=== PATIENT | female | born 1955 ===

== ENCOUNTER 2018-04-20 11:56 | Inpatient (IN) | payer OTHER ==
--- NOTE | 2018-04-20 12:14 | C.PDOC ---
History Of Present Illness 63 y/o female, with history of COPD and CHF, brought in by EMS for respiratory arrest. As per EMS, patient had a worsening SOB for the past 4 days. Patient was awake and EMS had prolonged extrication from site. EMS started nebulizer treatment but patient became unresponsive on route. CPR was initiated and patient was positive for PEA, as per EMS. Patient was given epi x2 and s/p intubated prior to arrival. On arrival at 11:53am, patient is still positive for PEA and has no palpable pulse. CPR was re-initiated. Chief Complaint (Nursing): Cardiac Arrest History Per: EMS Reason For Code Blue: Respiratory Arrest Circumstances: Brought To ED By EMS CPR Initiated Prior To MD Arrival?: Yes Treatment Initiated Prior To MD Arrival: Yes: Intubation Medications Given Prior To MD Arrival: Yes: Epinephrine (2) - Initial Findings Mentation: Unresponsive Pulse: None Rhythm: PEA Past Medical History Reviewed: Historical Data, Nursing Documentation, Vital Signs Vital Signs: Last Vital Signs Temp Pulse 0 L 04/20/18 12:01 Resp 0 L 04/20/18 12:01 BP 0/0 L 04/20/18 12:01 Pulse Ox 89 L 04/20/18 12:01 - Medical History PMH: Asthma, Bronchitis, COPD, HTN Family History: States: No Known Family Hx - Social History Hx Alcohol Use: No Hx Substance Use: No Review Of Systems Review Of Systems: ROS cannot be obtained secondary to pt's inabilty to answer questions. Physical Exam - Physical Exam Appears: Other (Unresponsive) Skin: Other (dehiscence abdominal wall wound in RLQ) Head: Atraumatic, Normacephalic Neck: Supple Respiratory: Other (ET tube placed, with pink frothy fluid coming out of tube) Extremity: Other (ulcerations on both lower legs) Pulses: Left Radial: Absent (no palpable pulse), Right Radial: Absent Neurological/Psych: Other (no spontaneous activity or response to pain) ED Course And Treatment - Laboratory Results Result Diagrams: 04/20/18 12:30 ECG: Interpreted By Me, Viewed By Me ECG Rhythm: Sinus Rhythm Interpretation Of ECst degree AV block Rate From EC O2 Sat by Pulse Oximetry: 89 (RA) Pulse Ox Interpretation: Abnormal - Radiology CXR: Interpreted by Me CXR Interpretation: Yes: Other (R MAINSTEM) - Other Rad CXR X-Ray: Read By Radiologist Interpretation: FINDINGS: In situ ETT, tip which lies in the right mainstem bronchus and should be withdrawn. In situ NGT, the tip of which has not been included on this film though distal aspect does lie well below EG junction just to the left of midline. LUNGS: Low lung volumes with crowded bronchovascular markings bibasilar atelectasis with bilateral mid to lower lobe infiltrates consistent with pulmonary edema/CHF. There also appears to be bilateral effusions. PLEURA: As above. No pneumothorax apparent. CARDIOVASCULAR: No discernible aortic atherosclerotic calcification present. Heart is enlarged. . OSSEOUS STRUCTURES: No significant abnormalities. VISUALIZED UPPER ABDOMEN: Normal. OTHER FINDINGS: None. IMPRESSION: ET T tip lies in the right mainstem bronchus and must be withdrawn. This finding was discussed with Dr. Gracia at approximately 12:50 p.m. with written down and read back verification. In situ NGT as above. Pulmonary vascular congestive changes with bilateral lower lobe alveolar-type infiltrates and bilateral effusions. Cardiomegaly. Progress - Re-Evaluation Re-evaluation Note: 04/20/18 12:16 Patient had resumed pulse. 04/20/18 12:17 Patient had recurrent PEA. 04/20/18 12:20 Resumed sinus tachycardic, femoral pulse with doppler. 04/20/18 12:39 ETT TO BE ADJUSTED. SINUS TACH, STABLE ON VENT. PENDING CALLBACK DR ZAVALA 04/20/18 12:46 D/W DR MARISELA FRANKLIN TELEGRAPHIC INSTRUMENT SUPERVISOR WILL ADMIT 04/20/18 13:15 Recurrent PEA, CPR re-initiated. Discussed with patient's daughter on the phone, who is in [place] and identifies as the healthcare decision maker. Daughter is aware of patient's status and wants to continue full code. Patient's son is at bedside. ICU aware. Positive femoral pulse on doppler. 04/20/18 13:[address] Jeronimo to follow up dispo. - Data Reviewed Data Reviewed: Lab, Diagnostic imaging, EKG, Old records - Critical Care Citical Care: Excluding Proc Time Critical Care Time: 90 minutes Disposition Counseled Patient/Family Regarding: Studies Performed, Diagnosis - Disposition Disposition: HOSPITALIZED Disposition Time: 12:46 Condition: CRITICAL - POA Present On Arrival: None - Clinical Impression Clinical Impression: Respiratory arrest, PEA (Pulseless electrical activity), CHF exacerbation, COPD exacerbation
[2018-04-20 12:43] LABS: BASO # 0.1 K/uL (0.0-0.2); BASO % 0.4 % (0.0-2.0); EOS # 0.1 K/uL (0.0-0.7); EOS % 0.3 % (0.0-4.0); LYMPH # 2.5 K/uL (1.0-4.3); LYMPH % 13.8 % (20.0-40.0); MEAN CELL VOLUME 84.3 fL (81.0-99.0); MEAN CORPUSCULAR HEMOGLOBIN 25.7 pg (27.0-31.0); MEAN CORPUSCULAR HGB CONC 30.4 g/dL (33.0-37.0); MEAN PLATELET VOLUME 10.3 fL (7.2-11.7); MONO # 0.4 K/uL (0.0-0.8); MONO % 2.3 % (0.0-10.0); NEUT # 15.1 K/uL (1.8-7.0); NEUT % 83.2 % (50.0-75.0); NRBC % 0.3 % (0.0-2.0); RBC 5.85 Mil/uL (3.80-5.20); RED CELL DISTRIBUTION WIDTH 16.1 % (11.5-14.5); WHITE BLOOD COUNT 18.2 K/uL (4.8-10.8)
[2018-04-20 12:51] LABS: INR 1.2; PROTHROMBIN TIME 13.6 SECONDS (9.7-12.2)
--- NOTE | 2018-04-20 12:54 | RAD ---
Date of service: 04/20/2018 HISTORY: ca cardiac arrest COMPARISON: None available. FINDINGS: In situ ETT, tip which lies in the right mainstem bronchus and should be withdrawn. In situ NGT, the tip of which has not been included on this film though distal aspect does lie well below EG junction just to the left of midline. LUNGS: Low lung volumes with crowded bronchovascular markings bibasilar atelectasis with bilateral mid to lower lobe infiltrates consistent with pulmonary edema/CHF. There also appears to be bilateral effusions PLEURA: As above. No pneumothorax apparent. CARDIOVASCULAR: No discernible aortic atherosclerotic calcification present. Heart is enlarged. . OSSEOUS STRUCTURES: No significant abnormalities. VISUALIZED UPPER ABDOMEN: Normal. OTHER FINDINGS: None. IMPRESSION: ET T tip lies in the right mainstem bronchus and must be withdrawn. This finding was discussed with Dr. Gracia at approximately 12:50 p.m. with written down and read back verification. In situ NGT as above. Pulmonary vascular congestive changes with bilateral lower lobe alveolar-type infiltrates and bilateral effusions. Cardiomegaly.
[2018-04-20] MEDS: DOPamine 400mg/250ml D5W 400 MG/250 ML BAG IV PRN ×3 (13:01→18:45)
--- NOTE | 2018-04-20 13:03 | CP.PCM.CON ---
<Bethany Richard - Last Filed: 04/20/18 15:26> History of Present Illness - History of Present Illness History of Present Illness: ICU Consult Note for Dr. Davidson HPI: 63 y/o female with PMHx of COPD and CHF presented to the ED s/p cardiac arrest. Patient was intubated in the field. Patient presents via EMS and without family. Before she arrived to the ED, she went into PEA, epi x 2 given, patient intubated, CPR initiated, and PEA occurred again. Patient given dopamine in the ED. IO access on right tibia performed by ED physician. Central line was not performed in the ED. CPR again in the ED. (See chart for detailed events). Patient stabilized and brought up to ED. Right femoral TLC inserted. Patient with some jerking movements and intermittent opening of eyes during procedure, but no agitation. Patient's past medical record under "select visit" unable to be obtained; they were outpatient visits. ROS: Due to patient condition, ROS and other medical history unable to be obtained Review of Systems - Review of Systems Systems not reviewed;Unavailable: Acuity of Condition, Intubated Past Patient History - Past Social History Smoking Status: Unknown If Ever Smoked - CARDIAC Hx Hypertension: Yes - PULMONARY Hx Asthma: Yes Hx Bronchitis: Yes Hx Chronic Obstructive Pulmonary Disease (COPD): Yes - PSYCHIATRIC Hx Substance Use: No Meds Allergies/Adverse Reactions: Allergies Allergy/AdvReac Type Severity Reaction Status Date / Time No Known Allergies Allergy Verified 04/20/18 12:06 - Medications Medications: Current Medications Dopamine HCl/Dextrose (Dopamine 400mg/250ml D5w) 400 mg in 250 mls @ 6.294 mls/hr IV .Q24H PRN; Protocol PRN Reason: TITRATE PER MD ORDER Physical Exam - Constitutional Appears: Other (lethargic) - Head Exam Head Exam: ATRAUMATIC, NORMAL INSPECTION, NORMOCEPHALIC - Neck Exam Additional comments: short neck due to obesity - Respiratory Exam Respiratory Exam: Wheezes (expiratory wheezing throughout lung celis). absent: Clear to Auscultation Bilateral - Cardiovascular Exam Cardiovascular Exam: Tachycardia - GI/Abdominal Exam GI & Abdominal Exam: Soft. absent: Rebound, Rigid, Tenderness Additional comments: central obesity - Extremities Exam Additional comments: 2+ pitting LE edema, bilateral bandages on calves - Neurological Exam Additional comments: unable to assess due to patient condition - Skin Skin Exam: Cyanosis, Dry, Intact Results - Vital Signs Recent Vital Signs: Last Vital Signs Temp Pulse 0 L 04/20/18 12:01 Resp 0 L 04/20/18 12:01 BP 0/0 L 04/20/18 12:01 Pulse Ox 89 L 04/20/18 12:56 - Labs Result Diagrams: 04/20/18 12:30 04/20/18 13:50 Labs: Laboratory Results - last 24 hr 04/20/18 04/20/18 12:30 12:31 WBC 18.2 H RBC 5.85 H Hgb 15.0 Hct 49.3 H MCV 84.3 MCH 25.7 L MCHC 30.4 L RDW 16.1 H Plt Count 157 MPV 10.3 Neut % (Auto) 83.2 H Lymph % (Auto) 13.8 L Sac % (Auto) 2.3 Eos % (Auto) 0.3 Baso % (Auto) 0.4 Neut # (Auto) 15.1 H Lymph # (Auto) 2.5 Sac # (Auto) 0.4 Eos # (Auto) 0.1 Baso # (Auto) 0.1 PT 13.6 H INR 1.2 APTT 51 H Assessment & Plan - Assessment and Plan (Free Text) Assessment: 63 y/o female with PMHx of COPD and CHF presented to the ED s/p cardiac arrest. Patient was intubated in the field. Transferred to ICU. neuro -not alert, some jerking movements and spontaneous opening of eyes -intubated -s/p ativan x 1 -CT head negative for hemorrhage -concern for anoxic brain injury. Neuro consult Dr. Monroy, recs appreciated CV -PMHx CHF -BNP 34588 on admission 04/20 -avoid diuresis w/ lasix IV for now due to hypotension -troponin x 1 negative on admission 04/20, repeat q8h pending -Patient admitted with hypotension and tachycardia 57/28 and HR >120. See code sheet for details. Patient was on DA but it was d/yevgeniy. Now levophed, titratable. -Code freeze called at 1415 on admission day 04/20. CT head neg for hemorrhage. Pulm -PMHx COPD and CHF -CXR 04/20: bilateral effusions, alveolar type infiltrates in bilateral lower lobe. NGT appreciated. -ABG in ED: pH 6.94, pCO2 69, pO2 65, HCO3 10.2. Severe acidosis. Patient given bicarb x 2 after insertion of right femoral TLC in the ICU. Repeat ABG after bicarb treatment pending -vent settings: 25/100%/500/5 -duonebs q4h -CXR and ABG qAM while intubated GI -no acute issues -consider tube feeding w/ pulmocort after further stabilized Renal -patient admitted with acute kidney injury -CMP on admission 04/20 with BUN/Cr 31/1.3 -phoslo x 1 given due to hyperphosphatemia -avoid nephrotoxic agents -CMP qAM ID -leukocytosis 18.2 on admission 04/20. Patient afebrile. -pending urinalysis and urine culture from straight cath Endo -accuchecks q6h DVT ppx: hold for now (patient w/ recent falls - injury to lower extremities. Not in record; from another hospital per RN.) GI ppx: protonix 40 mg q12h Code: full, per ED staff. Will confirm code status upon arrival of family. Bethany Richard PGY1 <Moshe Davidson - Last Filed: 04/20/18 16:47> Meds - Medications Medications: Current Medications Albuterol/Ipratropium (Duoneb 3 Mg/0.5 Mg (3 Ml) Ud) 3 ml INH RQ4 SHANNAN Calcium Acetate (Phoslo) 667 mg GT BIDCC ONE Stop: 04/20/18 17:01 Sodium Bicarbonate 150 meq/ (Sodium Chloride) 900 mls @ 100 mls/hr IV .Q9H SHANNAN Last Admin: 04/20/18 14:27 Dose: 100 mls/hr Norepinephrine Bitartrate 4 mg (/ Sodium Chloride) 250 mls @ 15 mls/hr IV .[id number] PRN; Protocol PRN Reason: TITRATE PER MD ORDER Sodium Chloride (Sodium Chloride 0.9%) 1,000 mls @ 1,000 mls/hr IV .Q1H ONE Stop: 04/20/18 16:54 Pantoprazole Sodium (Protonix Inj) 40 mg IVP Q12H [facility] Results - Vital Signs Recent Vital Signs: Last Vital Signs Temp 98.1 F 04/20/18 13:40 Pulse 96 H 04/20/18 13:40 Resp 20 04/20/18 13:40 BP 111/67 04/20/18 13:40 Pulse Ox 89 L 04/20/18 13:34 - Labs Result Diagrams: 04/20/18 12:30 04/20/18 13:50 Labs: Laboratory Results - last 24 hr 04/20/18 04/20/18 04/20/18 12:30 12:31 13:06 WBC 18.2 H RBC 5.85 H Hgb 15.0 Hct 49.3 H MCV 84.3 MCH 25.7 L MCHC 30.4 L RDW 16.1 H Plt Count 157 MPV 10.3 Neut % (Auto) 83.2 H Lymph % (Auto) 13.8 L Sac % (Auto) 2.3 Eos % (Auto) 0.3 Baso % (Auto) 0.4 Neut # (Auto) 15.1 H Lymph # (Auto) 2.5 Sac # (Auto) 0.4 Eos # (Auto) 0.1 Baso # (Auto) 0.1 PT 13.6 H INR 1.2 APTT 51 H Puncture Site pCO2 pO2 HCO3 ABG pH ABG Total CO2 ABG O2 Saturation ABG Base Excess ABG Hemoglobin ABG Carboxyhemoglobin POC ABG HHb (Measured) ABG Methemoglobin Aurelio Test A-a O2 Difference Respiratory Index Hgb O2 Saturation Vent Mode Mechanical Rate FiO2 Tidal Volume PEEP Crit Value Called To Crit Value Called By Crit Value Read Back Blood Gas Notified Time Sodium Potassium Chloride Carbon Dioxide Anion Gap BUN Creatinine Est GFR ( Amer) Est GFR (Non-Af Amer) Random Glucose Calcium Phosphorus Magnesium Total Bilirubin AST ALT Alkaline Phosphatase Troponin I NT-Pro-B Natriuret Pep Total Protein Albumin Globulin Albumin/Globulin Ratio Lipase Blood Type A NEGATIVE Antibody Screen Negative 04/20/18 04/20/18 04/20/18 13:25 13:50 13:55 WBC RBC Hgb Hct MCV MCH MCHC RDW Plt Count MPV Neut % (Auto) Lymph % (Auto) Sac % (Auto) Eos % (Auto) Baso % (Auto) Neut # (Auto) Lymph # (Auto) Sac # (Auto) Eos # (Auto) Baso # (Auto) PT INR APTT Puncture Site Rr pCO2 69 H pO2 65 L HCO3 10.2 L ABG pH 6.94 L* ABG Total CO2 16.9 L ABG O2 Saturation 86.8 L ABG Base Excess -18.4 L ABG Hemoglobin 14.6 ABG Carboxyhemoglobin 2.3 H POC ABG HHb (Measured) 12.8 H ABG Methemoglobin 0.4 Aurelio Test Pos A-a O2 Difference 562.0 Respiratory Index 8.6 Hgb O2 Saturation 84.5 L Vent Mode Prvc Mechanical Rate 20 FiO2 100.0 Tidal Volume 500 PEEP 5 Crit Value Called To Dr funes Crit Value Called By Bettina briscoe Crit Value Read Back Y Blood Gas Notified Time 1337 Sodium 136 Potassium 4.3 Chloride 103 Carbon Dioxide 19 L Anion Gap 19 BUN 31 H Creatinine 1.3 H Est GFR ( Amer) 50 Est GFR (Non-Af Amer) 41 Random Glucose 149 H Calcium 8.9 Phosphorus 6.8 H Magnesium 2.3 Total Bilirubin 1.0 AST 91 H ALT 23 Alkaline Phosphatase 342 H Troponin I 0.0710 NT-Pro-B Natriuret Pep 52437 H Total Protein 7.1 Albumin 3.3 L Globulin 3.8 Albumin/Globulin Ratio 0.8 L Lipase 83 Blood Type A NEGATIVE Antibody Screen Negative Attending/Attestation - Attestation I have personally seen and examined this patient.: Yes I have fully participated in the care of the patient.: Yes I have reviewed all pertinent clinical information: Yes Notes (Text): 04/20/18 16:45 Patient seen and examined Status post cardiac arrest and resuscitation No response to painful stimuli with dilated pupils Therapeutic hypothermia started Neurology evaluation Cardiology consult Dr. burton Cardiac enzymes
[2018-04-20 13:37] LABS: ABG ALLEN TEST POS; ARTERIAL BLOOD GAS HCO3 10.2 mmol/L (21-28); ARTERIAL BLOOD GAS HEMOGLOBIN 14.6 g/dL (11.7-17.4); ARTERIAL BLOOD GAS O2 SAT 86.8 % (95-98); ARTERIAL BLOOD GAS PCO2 69 mm/Hg (35-45); ARTERIAL BLOOD GAS PH 6.94 (7.35-7.45); ARTERIAL BLOOD GAS PO2 65 mm/Hg (80-100); ARTERIAL BLOOD GAS TCO2 16.9 mmol/L (22-28)
[2018-04-20] MEDS ORDERED: Sodium Bicarbonate (8.4%) 50 Meq Syringe ONE (13:57)
[2018-04-20] MEDS ORDERED: SODIUM CHLORIDE 0.9% IV SCH (14:15)
[2018-04-20] MEDS ORDERED: SODIUM BICARBONATE IV SCH (14:15)
--- NOTE | 2018-04-20 14:16 | CP.PCM.PCO ---
Physician Communication Note - Physician Communication Note Physician Communication Note: see above
[2018-04-20 14:23] LABS: ALB/GLOB RATIO 0.8 (1.0-2.1); ALBUMIN 3.3 g/dL (3.5-5.0); CALCIUM 8.9 mg/dl (8.6-10.4)
[2018-04-20] MEDS: Sodium Bicarbonate (8.4%) 50 Meq Syringe IVP SCH (14:27)
[2018-04-20] MEDS ORDERED: MethylPREDNISolone 40 mg Vial IVP SCH (14:30)
[2018-04-20] MEDS ORDERED: Sodium Bicarbonate (8.4%) 50 Meq Syringe IVP ONE (14:30)
[2018-04-20 14:34] LABS: TROPONIN I 0.071 ng/mL (0.00-0.120)
--- NOTE | 2018-04-20 15:25 | CT ---
Date of service: 04/20/2018 PROCEDURE: CT HEAD WITHOUT CONTRAST. HISTORY: r.o bleed COMPARISON: None available. TECHNIQUE: Axial computed tomography images were obtained through the head/brain without intravenous contrast. Radiation dose: Total exam DLP = 0.0 mGy-cm. This CT exam was performed using one or more of the following dose reduction techniques: Automated exposure control, adjustment of the mA and/or kV according to patient size, and/or use of iterative reconstruction technique. FINDINGS: HEMORRHAGE: No intracranial hemorrhage. BRAIN: Minimal microangiopathy surrounds the frontal horns of the bilateral lateral ventricles with remaining osborne and white-matter density normal throughout the remainder of the supra and infratentorial brain parenchyma. There is no mass effect. There is no suspicious extra-axial collection appreciated, including hemorrhage. Sulci and cisterns appear diffusely unremarkable throughout. VENTRICLES: Unremarkable. No hydrocephalus. CALVARIUM: Unremarkable. PARANASAL SINUSES: Unremarkable as visualized. No significant inflammatory changes. MASTOID AIR CELLS: Unremarkable as visualized. No inflammatory changes. OTHER FINDINGS: None. IMPRESSION: Minimal chronic microangiopathy appropriate for the patient's stated age of 63 years. No additional pertinent findings in hemorrhage, mass effect or parenchymal edema. Follow-up CT available or MRI if clinically warranted.
[2018-04-20] MEDS ORDERED: Sodium Chloride 0.9% 1,000 ML IV ONE (15:55)
--- NOTE | 2018-04-20 18:01 | RAD ---
HISTORY: ett reposition COMPARISON: Chest x-ray performed earlier the same day. Endotracheal tube terminates above the molly, approximately 8.4 cm; however please note the molly is inadequately visualized due to overlying defibrillator pads. Nasogastric tube extends expected location of the stomach. Examination limited by habitus and marked hypoinflation. TECHNIQUE: Chest, one view. FINDINGS: Endotracheal tube terminates approximately 6 cm above the molly which is inadequately visualized due to overlying defibrillator pad. Nasogastric tube extends expected location of the stomach. LUNGS: Moderate pulmonary venous congestion. PLEURA: Small pleural effusions. No definite pneumothorax . CARDIOVASCULAR: Partially obscured; cardiac silhouette size appears top-normal. OSSEOUS STRUCTURES: Degenerative changes. VISUALIZED UPPER ABDOMEN: Unremarkable. OTHER FINDINGS: None. IMPRESSION: Suboptimal study as above. Moderate pulmonary venous congestion. Small pleural effusions. Endotracheal tube terminates approximately 6 cm above the molly which is inadequately visualized due to overlying defibrillator pad. Nasogastric tube extends expected location of the stomach.
[2018-04-20] MEDS ORDERED: Sodium Bicarbonate 8.4% 150 MEQ in Sodium Chloride 0.9% 850 ML IV SCH (19:09)
[2018-04-20 22:36] LABS: SQUAMOUS EPITHIAL < 1 /hpf (0-5); URINE BACTERIA MANY (<OCC); URINE BILIRUBIN NEGATIVE (NEGATIVE); URINE BLOOD 1+ (NEGATIVE); URINE CLARITY Hazy (Clear); URINE COLOR Yellow (YELLOW); URINE GLUCOSE (UA) 1+ mg/dL (Normal); URINE LEUKOCYTE ESTERASE NEG Leu/uL (Negative); URINE PROTEIN 3+ mg/dL (NEGATIVE); URINE UROBILINOGEN NORMAL mg/dL (0.2-1.0)
[2018-04-21] MEDS ORDERED: Dextrose 50% SYRINGE Inj (50 ml) IV STA ×2 (00:10→00:13)
[2018-04-21] MEDS: DOPamine 400mg/250ml D5W 400 MG/250 ML BAG IV PRN ×3 (00:34→18:14)
[2018-04-21 06:00] LABS: ABG ALLEN TEST POS; ARTERIAL BLOOD GAS HCO3 20.8 mmol/L (21-28); ARTERIAL BLOOD GAS HEMOGLOBIN 16.4 g/dL (11.7-17.4); ARTERIAL BLOOD GAS O2 SAT 96.6 % (95-98); ARTERIAL BLOOD GAS PCO2 37 mm/Hg (35-45); ARTERIAL BLOOD GAS PH 7.34 (7.35-7.45); ARTERIAL BLOOD GAS PO2 74 mm/Hg (80-100); ARTERIAL BLOOD GAS TCO2 21.1 mmol/L (22-28)
[2018-04-21 06:33] LABS: BASO # 0.2 K/uL (0.0-0.2); BASO % 0.6 % (0.0-2.0); EOS % 0.2 % (0.0-4.0); HEMOGLOBIN 16.8 g/dL (11.0-16.0); LYMPH # 0.8 K/uL (1.0-4.3); MEAN CELL VOLUME 81.2 fL (81.0-99.0); MEAN CORPUSCULAR HEMOGLOBIN 25.6 pg (27.0-31.0); MEAN CORPUSCULAR HGB CONC 31.6 g/dL (33.0-37.0); MONO # 1.1 K/uL (0.0-0.8); MONO % 3.9 % (0.0-10.0); NEUT # 25.2 K/uL (1.8-7.0); NEUT % 92.3 % (50.0-75.0); PLATELET COUNT 192 K/uL (130-400); RBC 6.56 Mil/uL (3.80-5.20); WHITE BLOOD COUNT 27.3 K/uL (4.8-10.8)
[2018-04-21 07:04] LABS: ALB/GLOB RATIO 0.7 (1.0-2.1); ALBUMIN 2.5 g/dL (3.5-5.0); CALCIUM 8.3 mg/dl (8.6-10.4)
--- NOTE | 2018-04-21 08:11 | CP.PCM.CON ---
History of Present Illness - History of Present Illness History of Present Illness: patient seen/examined full consult to follow long discussion with family will check echo Past Patient History - Past Medical History & Family History Past Medical History?: Yes - Past Social History Smoking Status: Unknown If Ever Smoked - CARDIAC Hx Hypertension: Yes - PULMONARY Hx Asthma: Yes Hx Bronchitis: Yes Hx Chronic Obstructive Pulmonary Disease (COPD): Yes - MUSCULOSKELETAL/RHEUMATOLOGICAL Hx Falls: No - PSYCHIATRIC Hx Substance Use: No Meds Allergies/Adverse Reactions: Allergies Allergy/AdvReac Type Severity Reaction Status Date / Time No Known Allergies Allergy Verified 04/20/18 12:06 - Medications Medications: Current Medications Albuterol/Ipratropium (Duoneb 3 Mg/0.5 Mg (3 Ml) Ud) 3 ml INH RQ4 SHANNAN Norepinephrine Bitartrate 4 mg (/ Sodium Chloride) 250 mls @ 15 mls/hr IV .[id number] PRN; Protocol PRN Reason: TITRATE PER MD ORDER Last Admin: 04/21/18 06:00 Dose: 5.01 mcg/min, 18.8 mls/hr Dopamine HCl/Dextrose (Dopamine 400mg/250ml D5w) 400 mg in 250 mls @ 6.294 mls/hr IV .Q24H PRN; Protocol PRN Reason: TITRATE PER MD ORDER Last Titration: 04/21/18 07:00 Dose: 8 mcg/kg/min, 25.2 mls/hr Sodium Bicarbonate 150 meq/ (Sodium Chloride) 1,000 mls @ 40 mls/hr IV .Q24H SHANNAN Last Admin: 04/20/18 19:10 Dose: 40 mls/hr Pantoprazole Sodium (Protonix Inj) 40 mg IVP Q12H SHANNAN Last Admin: 04/21/18 03:04 Dose: 40 mg Results - Vital Signs Recent Vital Signs: Last Vital Signs Temp 95.5 F L 04/21/18 04:00 Pulse 109 H 04/21/18 07:00 Resp 26 H 04/21/18 07:00 BP 123/48 L 04/21/18 06:57 Pulse Ox 98 04/21/18 07:00 - Labs Result Diagrams: 04/21/18 06:26 04/21/18 06:26 Labs: Laboratory Results - last 24 hr 01/09/19 01/09/19 01/09/19 12:30 12:31 13:06 WBC 18.2 H RBC 5.85 H Hgb 15.0 Hct 49.3 H MCV 84.3 MCH 25.7 L MCHC 30.4 L RDW 16.1 H Plt Count 157 MPV 10.3 Neut % (Auto) 83.2 H Lymph % (Auto) 13.8 L [place] % (Auto) 2.3 Eos % (Auto) 0.3 Baso % (Auto) 0.4 Neut # (Auto) 15.1 H Lymph # (Auto) 2.5 [place] # (Auto) 0.4 Eos # (Auto) 0.1 Baso # (Auto) 0.1 PT 13.6 H INR 1.2 APTT 51 H Puncture Site pCO2 pO2 HCO3 ABG pH ABG Total CO2 ABG O2 Saturation ABG Base Excess ABG Hemoglobin ABG Carboxyhemoglobin POC ABG HHb (Measured) ABG Methemoglobin [place] Test A-a O2 Difference Respiratory Index Hgb O2 Saturation Vent Mode Mechanical Rate FiO2 Tidal Volume PEEP Crit Value Called To Crit Value Called By Crit Value Read Back Blood Gas Notified Time Sodium Potassium Chloride Carbon Dioxide Anion Gap BUN Creatinine Est GFR ( Amer) Est GFR (Non-Af Amer) POC Glucose (mg/dL) Random Glucose Calcium Phosphorus Magnesium Total Bilirubin AST ALT Alkaline Phosphatase Troponin I NT-Pro-B Natriuret Pep Total Protein Albumin Globulin Albumin/Globulin Ratio Lipase Urine Color Urine Clarity Urine pH Ur Specific [place] Urine Protein Urine Glucose (UA) Urine Ketones Urine Blood Urine Nitrate Urine Bilirubin Urine Urobilinogen Ur Leukocyte Esterase Urine WBC (Auto) Urine RBC (Auto) Ur Squamous Epith Cells Urine Bacteria Blood Type A NEGATIVE Antibody Screen Negative 04/20/18 04/20/18 04/20/18 13:25 13:50 13:55 WBC RBC Hgb Hct MCV MCH MCHC RDW Plt Count MPV Neut % (Auto) Lymph % (Auto) [place] % (Auto) Eos % (Auto) Baso % (Auto) Neut # (Auto) Lymph # (Auto) [place] # (Auto) Eos # (Auto) Baso # (Auto) PT INR APTT Puncture Site Rr pCO2 69 H pO2 65 L HCO3 10.2 L ABG pH 6.94 L* ABG Total CO2 16.9 L ABG O2 Saturation 86.8 L ABG Base Excess -18.4 L ABG Hemoglobin 14.6 ABG Carboxyhemoglobin 2.3 H POC ABG HHb (Measured) 12.8 H ABG Methemoglobin 0.4 Aurelio Test Pos A-a O2 Difference 562.0 Respiratory Index 8.6 Hgb O2 Saturation 84.5 L Vent Mode Prvc Mechanical Rate 20 FiO2 100.0 Tidal Volume 500 PEEP 5 Crit Value Called To Dr funes Crit Value Called By Bettina briscoe Crit Value Read Back Y Blood Gas Notified Time 1337 Sodium 136 Potassium 4.3 Chloride 103 Carbon Dioxide 19 L Anion Gap 19 BUN 31 H Creatinine 1.3 H Est GFR ( Amer) 50 Est GFR (Non-Af Amer) 41 POC Glucose (mg/dL) Random Glucose 149 H Calcium 8.9 Phosphorus 6.8 H Magnesium 2.3 Total Bilirubin 1.0 AST 91 H ALT 23 Alkaline Phosphatase 342 H Troponin I 0.0710 NT-Pro-B Natriuret Pep 07453 H Total Protein 7.1 Albumin 3.3 L Globulin 3.8 Albumin/Globulin Ratio 0.8 L Lipase 83 Urine Color Urine Clarity Urine pH Ur Specific [place] Urine Protein Urine Glucose (UA) Urine Ketones Urine Blood Urine Nitrate Urine Bilirubin Urine Urobilinogen Ur Leukocyte Esterase Urine WBC (Auto) Urine RBC (Auto) Ur Squamous Epith Cells Urine Bacteria Blood Type A NEGATIVE Antibody Screen Negative 04/20/18 04/20/18 04/21/18 22:18 22:31 00:02 WBC RBC Hgb Hct MCV MCH MCHC RDW Plt Count MPV Neut % (Auto) Lymph % (Auto) [place] % (Auto) Eos % (Auto) Baso % (Auto) Neut # (Auto) Lymph # (Auto) [place] # (Auto) Eos # (Auto) Baso # (Auto) PT INR APTT Puncture Site pCO2 pO2 HCO3 ABG pH ABG Total CO2 ABG O2 Saturation ABG Base Excess ABG Hemoglobin ABG Carboxyhemoglobin POC ABG HHb (Measured) ABG Methemoglobin [place] Test A-a O2 Difference Respiratory Index Hgb O2 Saturation Vent Mode Mechanical Rate FiO2 Tidal Volume PEEP Crit Value Called To Crit Value Called By Crit Value Read Back Blood Gas Notified Time Sodium Potassium Chloride Carbon Dioxide Anion Gap BUN Creatinine Est GFR ( Amer) Est GFR (Non-Af Amer) POC Glucose (mg/dL) 24 L* Random Glucose Calcium Phosphorus Magnesium Total Bilirubin AST ALT Alkaline Phosphatase Troponin I 0.4590 H* NT-Pro-B Natriuret Pep Total Protein Albumin Globulin Albumin/Globulin Ratio Lipase Urine Color Yellow Urine Clarity Hazy Urine pH 5.0 Ur Specific [place] 1.013 Urine Protein 3+ H Urine Glucose (UA) 1+ Urine Ketones Negative Urine Blood 1+ H Urine Nitrate Negative Urine Bilirubin Negative Urine Urobilinogen Normal Ur Leukocyte Esterase Neg Urine WBC (Auto) 21 H Urine RBC (Auto) 40 H Ur Squamous Epith Cells < 1 Urine Bacteria Many H Blood Type Antibody Screen 04/21/18 04/21/18 04/21/18 00:04 01:21 05:17 WBC RBC Hgb Hct MCV MCH MCHC RDW Plt Count MPV Neut % (Auto) Lymph % (Auto) [place] % (Auto) Eos % (Auto) Baso % (Auto) Neut # (Auto) Lymph # (Auto) [place] # (Auto) Eos # (Auto) Baso # (Auto) PT INR APTT Puncture Site R rad pCO2 37 pO2 74 L HCO3 20.8 L ABG pH 7.34 L ABG Total CO2 21.1 L ABG O2 Saturation 96.6 ABG Base Excess -5.1 L ABG Hemoglobin 16.4 ABG Carboxyhemoglobin 2.2 H POC ABG HHb (Measured) 3.3 ABG Methemoglobin 0.8 Aurelio Test Pos A-a O2 Difference 593.0 Respiratory Index 8.0 Hgb O2 Saturation 93.7 L Vent Mode Prvc Mechanical Rate 24 FiO2 100.0 Tidal Volume 500 PEEP 5 Crit Value Called To Crit Value Called By Crit Value Read Back Blood Gas Notified Time Sodium Potassium Chloride Carbon Dioxide Anion Gap BUN Creatinine Est GFR ( Amer) Est GFR (Non-Af Amer) POC Glucose (mg/dL) 43 L 146 H Random Glucose Calcium Phosphorus Magnesium Total Bilirubin AST ALT Alkaline Phosphatase Troponin I NT-Pro-B Natriuret Pep Total Protein Albumin Globulin Albumin/Globulin Ratio Lipase Urine Color Urine Clarity Urine pH Ur Specific [place] Urine Protein Urine Glucose (UA) Urine Ketones Urine Blood Urine Nitrate Urine Bilirubin Urine Urobilinogen Ur Leukocyte Esterase Urine WBC (Auto) Urine RBC (Auto) Ur Squamous Epith Cells Urine Bacteria Blood Type Antibody Screen 04/21/18 04/21/18 04/21/18 06:26 06:26 06:38 WBC 27.3 H RBC 6.56 H Hgb 16.8 H Hct 53.3 H MCV 81.2 D MCH 25.6 L MCHC 31.6 L RDW 16.0 H Plt Count 192 MPV 10.0 Neut % (Auto) 92.3 H Lymph % (Auto) 3.0 L [place] % (Auto) 3.9 Eos % (Auto) 0.2 Baso % (Auto) 0.6 Neut # (Auto) 25.2 H Lymph # (Auto) 0.8 L [place] # (Auto) 1.1 H Eos # (Auto) 0.0 Baso # (Auto) 0.2 PT INR APTT Puncture Site pCO2 pO2 HCO3 ABG pH ABG Total CO2 ABG O2 Saturation ABG Base Excess ABG Hemoglobin ABG Carboxyhemoglobin POC ABG HHb (Measured) ABG Methemoglobin Aurelio Test A-a O2 Difference Respiratory Index Hgb O2 Saturation Vent Mode Mechanical Rate FiO2 Tidal Volume PEEP Crit Value Called To Crit Value Called By Crit Value Read Back Blood Gas Notified Time Sodium 136 Potassium 3.7 Chloride 101 Carbon Dioxide 22 Anion Gap 16 BUN 38 H Creatinine 1.7 H Est GFR ( Amer) 37 Est GFR (Non-Af Amer) 30 POC Glucose (mg/dL) 159 H Random Glucose 174 H Calcium 8.3 L Phosphorus 3.5 Magnesium 1.6 Total Bilirubin 1.7 H AST 94 H ALT 29 Alkaline Phosphatase 290 H Troponin I NT-Pro-B Natriuret Pep Total Protein 5.9 L Albumin 2.5 L D Globulin 3.4 Albumin/Globulin Ratio 0.7 L Lipase Urine Color Urine Clarity Urine pH Ur Specific [place] Urine Protein Urine Glucose (UA) Urine Ketones Urine Blood Urine Nitrate Urine Bilirubin Urine Urobilinogen Ur Leukocyte Esterase Urine WBC (Auto) Urine RBC (Auto) Ur Squamous Epith Cells Urine Bacteria Blood Type Antibody Screen
[2018-04-21 08:47] LABS: BANDS 50 % (0-2); LYMPHOCYTE 2 % (20-40); MONOCYTE 2 % (0-10); NEUTROPHIL 46 % (50-75); PLATELET ESTIMATE NORMAL (NORMAL); TOTAL CELLS COUNTED 100
[2018-04-21 08:48] LABS: GIANT PLATELETS PRESENT; LARGE PLATELETS PRESENT; TOXIC GRANULATION PRESENT
[2018-04-21 08:49] LABS: POIKILOCYTOSIS SLIGHT
--- NOTE | 2018-04-21 09:04 | RAD ---
Chest x-ray single frontal view HISTORY: Intubated. Comparison 04/20/2018 Findings: Lines and tubes in stable position. Worsening diffuse confluent bilateral airspace opacification most prominent in the mid to lower lung zones. Moderate loculated right pleural effusion and small left pleural effusion. Enlarged ectatic aorta. Cardiomegaly. Degenerative changes in the spine and shoulders. Impression: Moderate venous congestion. Confluent somewhat ill-defined airspace consolidative changes seen within the left mid lung zone and right infrahilar region. Bilateral hilar prominence. Atherosclerotic calcification and plaque in the aorta. Cardiomegaly.
[2018-04-21] MEDS ORDERED: Sodium Chloride 0.9% 1,000 ML IV SCH (12:06)
--- NOTE | 2018-04-21 14:55 | CARD ---
APPROVED REPORT Date of service: 04/21/2018 EXAM: Two-dimensional and M-mode echocardiogram with Doppler and color Doppler. Other Information Quality : AverageRhythm : INDICATION Congestive Heart Failure COPD Cardiac arrest, asthma RISK FACTORS Hypertension 2D DIMENSIONS IVSd1.0 (0.7-1.1cm)LVDd4.7 (3.9-5.9cm) PWd1.2 (0.7-1.1cm)LA Bbqcob32 (18-58mL) LVDs3.5 (2.5-4.0cm)FS (%) 20.0 % LVEF (%)45.0 (>50%)LVEF (English's)38.78 % IVC0.00 cm M-Mode DIMENSIONS Left Atrium (MM)2.56 (2.5-4.0cm)IVSd0.82 (0.7-1.1cm) Aortic Root2.68 (2.2-3.7cm)LVDd5.12 (4.0-5.6cm) Aortic Cusp Exc.1.48 (1.5-2.0cm)PWd0.82 (0.7-1.1cm) FS (%) 29 %LVDs3.63 (2.0-3.8cm) Mitral Valve MV E Tqbdyici23.6cm/sMV A Hyqmltuj12.3cm/sE/A ratio0.7 TDI Lateral E' Peak V5.90cm/sMedial E' Peak V3.83cm/sE/Lateral E'9.8 E/Medial E'15.0 Tricuspid Valve TR Peak Qdcyngfm432gq/sTR Peak [id number] <Conclusion> Technically limited and difficultstudy. LV systolic function and chamber size appears to be normal Diastolic dysfunction. Consider other modality to assess LV function if clinically indicated.
[2018-04-21] MEDS: Piperacill/Tazo 3.375gm in Dex 3.375 GM/50 ML BAG IVPB SCH ×2 (15:19→18:16)
--- NOTE | 2018-04-21 15:21 | CP.PCM.CON ---
History of Present Illness - History of Present Illness History of Present Illness: Palliative consult requested by Doctor Batista for goals of care discussion Patient is a 63 yo female admitted with SOB, S/P intubation on route to ED . Per family, patient had worsening SOB X 4 days. When EMSarrived, patient was still alert. On way to the hospital, patient become unresponsive in acute respiratory distress and was intubated. CXR as significant for cardiomegaly, mild pulmonary venous congestion and pleural effsion. Cardiology and pulmonary consults called. CT head was negative active bleeding. However, there is concern about anoxic brain injury. Neuro consult was called. Patient made DNR with agreement from kolby vasquez. PMH: COPD, CHF Soc. Hx: , lives at home Fam. Hx: Unknown Review of Systems - Review of Systems All systems: reviewed and no additional remarkable complaints except Review of Systems: ROS unobtainable from patient due to unconciosness. ROS obtained from nursing. Per nursing, patient remains with GCS of 3. Past Patient History - Past Medical History & Family History Past Medical History?: Yes - Past Social History Smoking Status: Unknown If Ever Smoked - CARDIAC Hx Hypertension: Yes - PULMONARY Hx Asthma: Yes Hx Bronchitis: Yes Hx Chronic Obstructive Pulmonary Disease (COPD): Yes - MUSCULOSKELETAL/RHEUMATOLOGICAL Hx Falls: No - PSYCHIATRIC Hx Substance Use: No Meds Allergies/Adverse Reactions: Allergies Allergy/AdvReac Type Severity Reaction Status Date / Time No Known Allergies Allergy Verified 04/20/18 12:06 - Medications Medications: Current Medications Albuterol/Ipratropium (Duoneb 3 Mg/0.5 Mg (3 Ml) Ud) 3 ml INH RQ4 SHANNAN Norepinephrine Bitartrate 4 mg (/ Sodium Chloride) 250 mls @ 15 mls/hr IV .[id number] PRN; Protocol PRN Reason: TITRATE PER MD ORDER Last Admin: 04/21/18 06:00 Dose: 5.01 mcg/min, 18.8 mls/hr Dopamine HCl/Dextrose (Dopamine 400mg/250ml D5w) 400 mg in 250 mls @ 6.294 mls/hr IV .Q24H PRN; Protocol PRN Reason: TITRATE PER MD ORDER Last Titration: 04/21/18 10:10 Dose: 10 mcg/kg/min, 31.468 mls/hr Piperacillin Sod/Tazobactam Sod (Zosyn 3.375 Gm Iv Premix) 3.375 gm in 50 mls @ 100 mls/hr IVPB Q6H SHANNAN; Protocol Vancomycin HCl 1 gm/ Sodium (Chloride) 250 mls @ 166.7 mls/hr IVPB Q24H SHANNAN; Protocol Pantoprazole Sodium (Protonix Inj) 40 mg IVP Q12H SHANNAN Last Admin: 04/21/18 03:04 Dose: 40 mg Physical Exam - Constitutional Appears: In Acute Distress - Head Exam Head Exam: ATRAUMATIC, NORMAL INSPECTION, NORMOCEPHALIC - Eye Exam Additional comments: corneal reflex absent, pupils non reactive to light - ENT Exam Additional comments: ETT - Neck Exam Neck exam: Positive for: Normal Inspection - Respiratory Exam Respiratory Exam: Accessory Muscle Use Additional comments: On MV - Cardiovascular Exam Cardiovascular Exam: Tachycardia - GI/Abdominal Exam GI & Abdominal Exam: Distended, Hypoactive Bowel Sounds - Rectal Exam Rectal Exam: Deferred - Extremities Exam Extremities exam: Positive for: normal inspection - Back Exam Back exam: NORMAL INSPECTION - Neurological Exam Neurological exam: Motor Sensory Deficit - Psychiatric Exam Psychiatric exam: Flat Affect - Skin Skin Exam: Pallor Results - Vital Signs Recent Vital Signs: Last Vital Signs Temp 98.2 F 04/21/18 12:00 Pulse 123 H 04/21/18 14:25 Resp 24 04/21/18 14:25 BP 136/87 04/21/18 14:25 Pulse Ox 88 L 04/21/18 14:25 - Labs Result Diagrams: 04/21/18 06:26 04/21/18 06:26 Labs: Laboratory Results - last 24 hr 04/20/18 04/20/18 04/21/18 22:18 22:31 00:02 WBC RBC Hgb Hct MCV MCH MCHC RDW Plt Count MPV Neut % (Auto) Lymph % (Auto) [place] % (Auto) Eos % (Auto) Baso % (Auto) Neut # (Auto) Lymph # (Auto) [place] # (Auto) Eos # (Auto) Baso # (Auto) Neutrophils % (Manual) Band Neutrophils % Lymphocytes % (Manual) Monocytes % (Manual) Toxic Granulation Platelet Estimate Large Platelets Giant Platelets Poikilocytosis (manual Puncture Site pCO2 pO2 HCO3 ABG pH ABG Total CO2 ABG O2 Saturation ABG Base Excess ABG Hemoglobin ABG Carboxyhemoglobin POC ABG HHb (Measured) ABG Methemoglobin Aurelio Test A-a O2 Difference Respiratory Index Hgb O2 Saturation Vent Mode Mechanical Rate FiO2 Tidal Volume PEEP Sodium Potassium Chloride Carbon Dioxide Anion Gap BUN Creatinine Est GFR ( Amer) Est GFR (Non-Af Amer) POC Glucose (mg/dL) 24 L* Random Glucose Calcium Phosphorus Magnesium Total Bilirubin AST ALT Alkaline Phosphatase Troponin I 0.4590 H* Total Protein Albumin Globulin Albumin/Globulin Ratio Urine Color Yellow Urine Clarity Hazy Urine pH 5.0 Ur Specific [place] 1.013 Urine Protein 3+ H Urine Glucose (UA) 1+ Urine Ketones Negative Urine Blood 1+ H Urine Nitrate Negative Urine Bilirubin Negative Urine Urobilinogen Normal Ur Leukocyte Esterase Neg Urine WBC (Auto) 21 H Urine RBC (Auto) 40 H Ur Squamous Epith Cells < 1 Urine Bacteria Many H 04/21/18 04/21/18 04/21/18 00:04 01:21 05:17 WBC RBC Hgb Hct MCV MCH MCHC RDW Plt Count MPV Neut % (Auto) Lymph % (Auto) [place] % (Auto) Eos % (Auto) Baso % (Auto) Neut # (Auto) Lymph # (Auto) [place] # (Auto) Eos # (Auto) Baso # (Auto) Neutrophils % (Manual) Band Neutrophils % Lymphocytes % (Manual) Monocytes % (Manual) Toxic Granulation Platelet Estimate Large Platelets Giant Platelets Poikilocytosis (manual Puncture Site R rad pCO2 37 pO2 74 L HCO3 20.8 L ABG pH 7.34 L ABG Total CO2 21.1 L ABG O2 Saturation 96.6 ABG Base Excess -5.1 L ABG Hemoglobin 16.4 ABG Carboxyhemoglobin 2.2 H POC ABG HHb (Measured) 3.3 ABG Methemoglobin 0.8 Aurelio Test Pos A-a O2 Difference 593.0 Respiratory Index 8.0 Hgb O2 Saturation 93.7 L Vent Mode Prvc Mechanical Rate 24 FiO2 100.0 Tidal Volume 500 PEEP 5 Sodium Potassium Chloride Carbon Dioxide Anion Gap BUN Creatinine Est GFR ( Amer) Est GFR (Non-Af Amer) POC Glucose (mg/dL) 43 L 146 H Random Glucose Calcium Phosphorus Magnesium Total Bilirubin AST ALT Alkaline Phosphatase Troponin I Total Protein Albumin Globulin Albumin/Globulin Ratio Urine Color Urine Clarity Urine pH Ur Specific [place] Urine Protein Urine Glucose (UA) Urine Ketones Urine Blood Urine Nitrate Urine Bilirubin Urine Urobilinogen Ur Leukocyte Esterase Urine WBC (Auto) Urine RBC (Auto) Ur Squamous Epith Cells Urine Bacteria 04/21/18 04/21/18 04/21/18 06:26 06:26 06:38 WBC 27.3 H RBC 6.56 H Hgb 16.8 H Hct 53.3 H MCV 81.2 D MCH 25.6 L MCHC 31.6 L RDW 16.0 H Plt Count 192 MPV 10.0 Neut % (Auto) 92.3 H Lymph % (Auto) 3.0 L [place] % (Auto) 3.9 Eos % (Auto) 0.2 Baso % (Auto) 0.6 Neut # (Auto) 25.2 H Lymph # (Auto) 0.8 L [place] # (Auto) 1.1 H Eos # (Auto) 0.0 Baso # (Auto) 0.2 Neutrophils % (Manual) 46 L Band Neutrophils % 50 H* Lymphocytes % (Manual) 2 L Monocytes % (Manual) 2 Toxic Granulation Present Platelet Estimate Normal Large Platelets Present Giant Platelets Present Poikilocytosis (manual Slight Puncture Site pCO2 pO2 HCO3 ABG pH ABG Total CO2 ABG O2 Saturation ABG Base Excess ABG Hemoglobin ABG Carboxyhemoglobin POC ABG HHb (Measured) ABG Methemoglobin Aurelio Test A-a O2 Difference Respiratory Index Hgb O2 Saturation Vent Mode Mechanical Rate FiO2 Tidal Volume PEEP Sodium 136 Potassium 3.7 Chloride 101 Carbon Dioxide 22 Anion Gap 16 BUN 38 H Creatinine 1.7 H Est GFR ( Amer) 37 Est GFR (Non-Af Amer) 30 POC Glucose (mg/dL) 159 H Random Glucose 174 H Calcium 8.3 L Phosphorus 3.5 Magnesium 1.6 Total Bilirubin 1.7 H AST 94 H ALT 29 Alkaline Phosphatase 290 H Troponin I Total Protein 5.9 L Albumin 2.5 L D Globulin 3.4 Albumin/Globulin Ratio 0.7 L Urine Color Urine Clarity Urine pH Ur Specific [place] Urine Protein Urine Glucose (UA) Urine Ketones Urine Blood Urine Nitrate Urine Bilirubin Urine Urobilinogen Ur Leukocyte Esterase Urine WBC (Auto) Urine RBC (Auto) Ur Squamous Epith Cells Urine Bacteria 04/21/18 12:12 WBC RBC Hgb Hct MCV MCH MCHC RDW Plt Count MPV Neut % (Auto) Lymph % (Auto) [place] % (Auto) Eos % (Auto) Baso % (Auto) Neut # (Auto) Lymph # (Auto) [place] # (Auto) Eos # (Auto) Baso # (Auto) Neutrophils % (Manual) Band Neutrophils % Lymphocytes % (Manual) Monocytes % (Manual) Toxic Granulation Platelet Estimate Large Platelets Giant Platelets Poikilocytosis (manual Puncture Site pCO2 pO2 HCO3 ABG pH ABG Total CO2 ABG O2 Saturation ABG Base Excess ABG Hemoglobin ABG Carboxyhemoglobin POC ABG HHb (Measured) ABG Methemoglobin Aurelio Test A-a O2 Difference Respiratory Index Hgb O2 Saturation Vent Mode Mechanical Rate FiO2 Tidal Volume PEEP Sodium Potassium Chloride Carbon Dioxide Anion Gap BUN Creatinine Est GFR ( Amer) Est GFR (Non-Af Amer) POC Glucose (mg/dL) 128 H Random Glucose Calcium Phosphorus Magnesium Total Bilirubin AST ALT Alkaline Phosphatase Troponin I Total Protein Albumin Globulin Albumin/Globulin Ratio Urine Color Urine Clarity Urine pH Ur Specific [place] Urine Protein Urine Glucose (UA) Urine Ketones Urine Blood Urine Nitrate Urine Bilirubin Urine Urobilinogen Ur Leukocyte Esterase Urine WBC (Auto) Urine RBC (Auto) Ur Squamous Epith Cells Urine Bacteria Assessment & Plan - Assessment and Plan (Free Text) Assessment: Palliative consult There is no Advance directive on chart, DNR, PPS 10% I reviewed medical records, all diagnostic studies and examined patient in the bed. Patient is intubated and sedated unresponsive to verbal/tactile stimuli. GCS of 3. Breathing is labored with use of abdominal muscles. FiO2 of 100 %. Patient is tachycardia and tachypneic. RR 25, HR 123. patient is on Levophed, BP 136/87. WBC 27, Band Neutrophils 50. Vanco and Zosyn IV on board. Patient seen by Doctor Vernon. Concern about anoxic brain injury. More tests to fallow. Family had left when I came to evaluate the patient and I was not able to discuss goals of care at this time. Impression * Acute respiratory distress on MV support * GCS 3 * Possible anoxic brain injury * Prognosis looks grave * Patient's wishes for end of life care are not known; family advocates for patient * Patient made DNR today Suggestions * Continue MV support * Further goals of care based on Neuro input * Agree with DNR * Allow 48 - 72 hf before decision of life support removal I will met with family tomorrow and discuss goals of care based on new test results and physical exam.
--- NOTE | 2018-04-21 16:14 | CP.CCUPN ---
<Danni Batista - Last Filed: 04/21/18 16:11> CCU Subjective - Physician Review Events Since Last Encounter (Free Text): 04/21/18 16:12 multiple code blues for patient; put on 2 vasopressors; patient made DNR; sharing network aware; pallitaive care consult pending Subjective (Free Text): 04/21/18 16:12 Critical Care Progress Note for Dr. Mejia's service Patient seen and examined. Intubated limited ROS. CCU Objective - Vital Signs / Intake & Output Vital Signs (Last 4 hours): Vital Signs Pulse Resp BP Pulse Ox 04/21/18 15:25 125 H 25 H 155/83 H 84 L 04/21/18 14:55 114/93 H 04/21/18 14:25 123 H 24 136/87 88 L 04/21/18 13:57 122 H 25 H 86/38 L 89 L 04/21/18 13:00 120 H 15 78 L 04/21/18 12:57 120 H 24 101/42 L 91 L Intake and Output (Last 8hrs): Intake & Output 04/21/18 04/21/18 04/21/18 06:59 14:59 22:59 Intake Total 1298.9 684.0 94.0 Output Total 110 15 Balance 1188.9 669.0 94.0 Weight 233 lb Intake: IV 520 132 Intake, IV Amount 778.9 552.0 94.0 Left Distal Port Femoral 210.2 150.4 18.8 Left Medial Port Femoral 320 200 50 Left Proximal Port 248.7 201.6 25.2 Femoral Oral 0 0 Output: Urine 110 15 Urethral (Pan) 110 15 Stool 0 0 - Physical Exam Head: Positive for: Atraumatic, Normocephalic Pupils: Positive for: Non-Reactive. Negative for: PERRL Mouth: Positive for: Dry, Other (oral ET tube) Respiratory/Chest: Positive for: Good Air Exchange. Negative for: Clear to Auscultation, Respiratory Distress Cardiovascular: Positive for: Normal S1, S2, Tachycardic. Negative for: Murmurs, Irregular Rhythm Abdomen: Positive for: Normal Bowel Sounds. Negative for: Tenderness, Distention, Peritoneal Signs Upper Extremity: Positive for: Normal Inspection. Negative for: Cyanosis, Edema Lower Extremity: Positive for: Normal Inspection. Negative for: Edema Neurological: Negative for: GCS=15 Skin: Positive for: Dry, Normal Color Psychiatric: Negative for: Alert, Oriented x 3 - Medications Active Medications: Active Medications Generic Name Dose Route Start Last Admin Trade Name Freq PRN Reason Stop Dose Admin Albuterol/Ipratropium 3 ml 04/20/18 16:00 Duoneb 3 Mg/0.5 Mg (3 Ml) Ud INH RQ4 SHANNAN Norepinephrine Bitartrate 4 mg 250 mls @ 15 mls/hr 04/20/18 14:16 04/21/18 06:00 / Sodium Chloride IV 5.01 mcg/min .[id number] PRN 18.8 mls/hr TITRATE PER MD ORDER Administration Protocol 4 MCG/MIN Dopamine HCl/Dextrose 400 mg in 250 mls @ 6.294 mls/hr 04/20/18 18:44 04/12 10:10 Dopamine 400mg/250ml D5w IV 10 mcg/kg/min .Q24H PRN 31.468 mls/hr TITRATE PER MD ORDER Titration Protocol 2 MCG/KG/MIN Piperacillin Sod/Tazobactam Sod 3.375 gm in 50 mls @ 100 mls/hr 04/21/18 12:15 04/21/18 15:19 Zosyn 3.375 Gm Iv Premix IVPB 100 mls/hr Q6H ON LICENSE OF [facility] Administration Protocol Vancomycin HCl 1 gm/ Sodium 250 mls @ 166.7 mls/hr 04/21/18 12:15 Chloride IVPB Q24H SHANNAN Protocol Pantoprazole Sodium 40 mg 04/20/18 15:00 04/21/18 15:28 Protonix Inj IVP 40 mg Q12H SHANNAN Administration - Patient Studies Lab Studies: Lab Studies 04/21/18 04/21/18 04/21/18 Range/Units 12:12 06:38 06:26 WBC (4.8-10.8) K/uL RBC (3.80-5.20) Mil/uL Hgb (11.0-16.0) g/dL Hct (34.0-47.0) % MCV (81.0-99.0) fL MCH (27.0-31.0) pg MCHC (33.0-37.0) g/dL RDW (11.5-14.5) % Plt Count (130-400) K/uL MPV (7.2-11.7) fL Neut % (Auto) (50.0-75.0) % Lymph % (Auto) (20.0-40.0) % Mineral % (Auto) (0.0-10.0) % Eos % (Auto) (0.0-4.0) % Baso % (Auto) (0.0-2.0) % Neut # (Auto) (1.8-7.0) K/uL Lymph # (Auto) (1.0-4.3) K/uL Mineral # (Auto) (0.0-0.8) K/uL Eos # (Auto) (0.0-0.7) K/uL Baso # (Auto) (0.0-0.2) K/uL Neutrophils % (Manual) (50-75) % Band Neutrophils % (0-2) % Lymphocytes % (Manual) (20-40) % Monocytes % (Manual) (0-10) % Toxic Granulation Platelet Estimate (NORMAL) Large Platelets Giant Platelets Poikilocytosis (manual Puncture Site pCO2 (35-45) mm/Hg pO2 (80-100) mm/Hg HCO3 (21-28) mmol/L ABG pH (7.35-7.45) ABG Total CO2 (22-28) mmol/L ABG O2 Saturation (95-98) % ABG Base Excess (-2.0-3.0) mmol/L ABG Hemoglobin (11.7-17.4) g/dL ABG Carboxyhemoglobin (0.5-1.5) % POC ABG HHb (Measured) (0.0-5.0) % ABG Methemoglobin (0.0-3.0) % Aurelio Test A-a O2 Difference mm/Hg Respiratory Index Hgb O2 Saturation (95.0-98.0) % Vent Mode Mechanical Rate FiO2 % Tidal Volume PEEP Sodium 136 (132-148) mmol/L Potassium 3.7 (3.6-5.2) mmol/L Chloride 101 (98-107) mmol/L Carbon Dioxide 22 (22-30) mmol/L Anion Gap 16 (10-20) BUN 38 H (7-17) mg/dL Creatinine 1.7 H (0.7-1.2) mg/dL Est GFR ( Amer) 37 Est GFR (Non-Af Amer) 30 POC Glucose (mg/dL) 128 H 159 H (65-110) mg/dL Random Glucose 174 H (65-105) mg/dL Calcium 8.3 L (8.6-10.4) mg/dl Phosphorus 3.5 (2.5-4.5) mg/dL Magnesium 1.6 (1.6-2.3) mg/dL Total Bilirubin 1.7 H (0.2-1.3) mg/dL AST 94 H (14-36) U/L ALT 29 (9-52) U/L Alkaline Phosphatase 290 H (38-126) U/L Troponin I (0.00-0.120) ng/mL Total Protein 5.9 L (6.3-8.3) g/dL Albumin 2.5 L D (3.5-5.0) g/dL Globulin 3.4 (2.2-3.9) gm/dL Albumin/Globulin Ratio 0.7 L (1.0-2.1) Urine Color (YELLOW) Urine Clarity (Clear) Urine pH (5.0-8.0) Ur Specific Barton (1.003-1.030) Urine Protein (NEGATIVE) mg/dL Urine Glucose (UA) (Normal) mg/dL Urine Ketones (NEGATIVE) mg/dL Urine Blood (NEGATIVE) Urine Nitrate (NEGATIVE) Urine Bilirubin (NEGATIVE) Urine Urobilinogen (0.2-1.0) mg/dL Ur Leukocyte Esterase (Negative) Libby/uL Urine WBC (Auto) (0-5) /hpf Urine RBC (Auto) (0-3) /hpf Ur Squamous Epith Cells (0-5) /hpf Urine Bacteria (<OCC) 04/21/18 04/21/18 04/21/18 Range/Units 06:26 05:17 01:21 WBC 27.3 H (4.8-10.8) K/uL RBC 6.56 H (3.80-5.20) Mil/uL Hgb 16.8 H (11.0-16.0) g/dL Hct 53.3 H (34.0-47.0) % MCV 81.2 D (81.0-99.0) fL MCH 25.6 L (27.0-31.0) pg MCHC 31.6 L (33.0-37.0) g/dL RDW 16.0 H (11.5-14.5) % Plt Count 192 (130-400) K/uL MPV 10.0 (7.2-11.7) fL Neut % (Auto) 92.3 H (50.0-75.0) % Lymph % (Auto) 3.0 L (20.0-40.0) % Mineral % (Auto) 3.9 (0.0-10.0) % Eos % (Auto) 0.2 (0.0-4.0) % Baso % (Auto) 0.6 (0.0-2.0) % Neut # (Auto) 25.2 H (1.8-7.0) K/uL Lymph # (Auto) 0.8 L (1.0-4.3) K/uL Mineral # (Auto) 1.1 H (0.0-0.8) K/uL Eos # (Auto) 0.0 (0.0-0.7) K/uL Baso # (Auto) 0.2 (0.0-0.2) K/uL Neutrophils % (Manual) 46 L (50-75) % Band Neutrophils % 50 H* (0-2) % Lymphocytes % (Manual) 2 L (20-40) % Monocytes % (Manual) 2 (0-10) % Toxic Granulation Present Platelet Estimate Normal (NORMAL) Large Platelets Present Giant Platelets Present Poikilocytosis (manual Slight Puncture Site R rad pCO2 37 (35-45) mm/Hg pO2 74 L (80-100) mm/Hg HCO3 20.8 L (21-28) mmol/L ABG pH 7.34 L (7.35-7.45) ABG Total CO2 21.1 L (22-28) mmol/L ABG O2 Saturation 96.6 (95-98) % ABG Base Excess -5.1 L (-2.0-3.0) mmol/L ABG Hemoglobin 16.4 (11.7-17.4) g/dL ABG Carboxyhemoglobin 2.2 H (0.5-1.5) % POC ABG HHb (Measured) 3.3 (0.0-5.0) % ABG Methemoglobin 0.8 (0.0-3.0) % Aurelio Test Pos A-a O2 Difference 593.0 mm/Hg Respiratory Index 8.0 Hgb O2 Saturation 93.7 L (95.0-98.0) % Vent Mode Prvc Mechanical Rate 24 FiO2 100.0 % Tidal Volume 500 PEEP 5 Sodium (132-148) mmol/L Potassium (3.6-5.2) mmol/L Chloride (98-107) mmol/L Carbon Dioxide (22-30) mmol/L Anion Gap (10-20) BUN (7-17) mg/dL Creatinine (0.7-1.2) mg/dL Est GFR ( Amer) Est GFR (Non-Af Amer) POC Glucose (mg/dL) 146 H (65-110) mg/dL Random Glucose (65-105) mg/dL Calcium (8.6-10.4) mg/dl Phosphorus (2.5-4.5) mg/dL Magnesium (1.6-2.3) mg/dL Total Bilirubin (0.2-1.3) mg/dL AST (14-36) U/L ALT (9-52) U/L Alkaline Phosphatase (38-126) U/L Troponin I (0.00-0.120) ng/mL Total Protein (6.3-8.3) g/dL Albumin (3.5-5.0) g/dL Globulin (2.2-3.9) gm/dL Albumin/Globulin Ratio (1.0-2.1) Urine Color (YELLOW) Urine Clarity (Clear) Urine pH (5.0-8.0) Ur Specific Barton (1.003-1.030) Urine Protein (NEGATIVE) mg/dL Urine Glucose (UA) (Normal) mg/dL Urine Ketones (NEGATIVE) mg/dL Urine Blood (NEGATIVE) Urine Nitrate (NEGATIVE) Urine Bilirubin (NEGATIVE) Urine Urobilinogen (0.2-1.0) mg/dL Ur Leukocyte Esterase (Negative) Libby/uL Urine WBC (Auto) (0-5) /hpf Urine RBC (Auto) (0-3) /hpf Ur Squamous Epith Cells (0-5) /hpf Urine Bacteria (<OCC) 04/21/18 04/21/18 04/20/18 Range/Units 00:04 00:02 22:31 WBC (4.8-10.8) K/uL RBC (3.80-5.20) Mil/uL Hgb (11.0-16.0) g/dL Hct (34.0-47.0) % MCV (81.0-99.0) fL MCH (27.0-31.0) pg MCHC (33.0-37.0) g/dL RDW (11.5-14.5) % Plt Count (130-400) K/uL MPV (7.2-11.7) fL Neut % (Auto) (50.0-75.0) % Lymph % (Auto) (20.0-40.0) % Mineral % (Auto) (0.0-10.0) % Eos % (Auto) (0.0-4.0) % Baso % (Auto) (0.0-2.0) % Neut # (Auto) (1.8-7.0) K/uL Lymph # (Auto) (1.0-4.3) K/uL Mineral # (Auto) (0.0-0.8) K/uL Eos # (Auto) (0.0-0.7) K/uL Baso # (Auto) (0.0-0.2) K/uL Neutrophils % (Manual) (50-75) % Band Neutrophils % (0-2) % Lymphocytes % (Manual) (20-40) % Monocytes % (Manual) (0-10) % Toxic Granulation Platelet Estimate (NORMAL) Large Platelets Giant Platelets Poikilocytosis (manual Puncture Site pCO2 (35-45) mm/Hg pO2 (80-100) mm/Hg HCO3 (21-28) mmol/L ABG pH (7.35-7.45) ABG Total CO2 (22-28) mmol/L ABG O2 Saturation (95-98) % ABG Base Excess (-2.0-3.0) mmol/L ABG Hemoglobin (11.7-17.4) g/dL ABG Carboxyhemoglobin (0.5-1.5) % POC ABG HHb (Measured) (0.0-5.0) % ABG Methemoglobin (0.0-3.0) % Aurelio Test A-a O2 Difference mm/Hg Respiratory Index Hgb O2 Saturation (95.0-98.0) % Vent Mode Mechanical Rate FiO2 % Tidal Volume PEEP Sodium (132-148) mmol/L Potassium (3.6-5.2) mmol/L Chloride (98-107) mmol/L Carbon Dioxide (22-30) mmol/L Anion Gap (10-20) BUN (7-17) mg/dL Creatinine (0.7-1.2) mg/dL Est GFR ( Amer) Est GFR (Non-Af Amer) POC Glucose (mg/dL) 43 L 24 L* (65-110) mg/dL Random Glucose (65-105) mg/dL Calcium (8.6-10.4) mg/dl Phosphorus (2.5-4.5) mg/dL Magnesium (1.6-2.3) mg/dL Total Bilirubin (0.2-1.3) mg/dL AST (14-36) U/L ALT (9-52) U/L Alkaline Phosphatase (38-126) U/L Troponin I 0.4590 H* (0.00-0.120) ng/mL Total Protein (6.3-8.3) g/dL Albumin (3.5-5.0) g/dL Globulin (2.2-3.9) gm/dL Albumin/Globulin Ratio (1.0-2.1) Urine Color (YELLOW) Urine Clarity (Clear) Urine pH (5.0-8.0) Ur Specific Barton (1.003-1.030) Urine Protein (NEGATIVE) mg/dL Urine Glucose (UA) (Normal) mg/dL Urine Ketones (NEGATIVE) mg/dL Urine Blood (NEGATIVE) Urine Nitrate (NEGATIVE) Urine Bilirubin (NEGATIVE) Urine Urobilinogen (0.2-1.0) mg/dL Ur Leukocyte Esterase (Negative) Libby/uL Urine WBC (Auto) (0-5) /hpf Urine RBC (Auto) (0-3) /hpf Ur Squamous Epith Cells (0-5) /hpf Urine Bacteria (<OCC) 04/20/18 Range/Units 22:18 WBC (4.8-10.8) K/uL RBC (3.80-5.20) Mil/uL Hgb (11.0-16.0) g/dL Hct (34.0-47.0) % MCV (81.0-99.0) fL MCH (27.0-31.0) pg MCHC (33.0-37.0) g/dL RDW (11.5-14.5) % Plt Count (130-400) K/uL MPV (7.2-11.7) fL Neut % (Auto) (50.0-75.0) % Lymph % (Auto) (20.0-40.0) % Mineral % (Auto) (0.0-10.0) % Eos % (Auto) (0.0-4.0) % Baso % (Auto) (0.0-2.0) % Neut # (Auto) (1.8-7.0) K/uL Lymph # (Auto) (1.0-4.3) K/uL Mineral # (Auto) (0.0-0.8) K/uL Eos # (Auto) (0.0-0.7) K/uL Baso # (Auto) (0.0-0.2) K/uL Neutrophils % (Manual) (50-75) % Band Neutrophils % (0-2) % Lymphocytes % (Manual) (20-40) % Monocytes % (Manual) (0-10) % Toxic Granulation Platelet Estimate (NORMAL) Large Platelets Giant Platelets Poikilocytosis (manual Puncture Site pCO2 (35-45) mm/Hg pO2 (80-100) mm/Hg HCO3 (21-28) mmol/L ABG pH (7.35-7.45) ABG Total CO2 (22-28) mmol/L ABG O2 Saturation (95-98) % ABG Base Excess (-2.0-3.0) mmol/L ABG Hemoglobin (11.7-17.4) g/dL ABG Carboxyhemoglobin (0.5-1.5) % POC ABG HHb (Measured) (0.0-5.0) % ABG Methemoglobin (0.0-3.0) % Aurelio Test A-a O2 Difference mm/Hg Respiratory Index Hgb O2 Saturation (95.0-98.0) % Vent Mode Mechanical Rate FiO2 % Tidal Volume PEEP Sodium (132-148) mmol/L Potassium (3.6-5.2) mmol/L Chloride (98-107) mmol/L Carbon Dioxide (22-30) mmol/L Anion Gap (10-20) BUN (7-17) mg/dL Creatinine (0.7-1.2) mg/dL Est GFR ( Amer) Est GFR (Non-Af Amer) POC Glucose (mg/dL) (65-110) mg/dL Random Glucose (65-105) mg/dL Calcium (8.6-10.4) mg/dl Phosphorus (2.5-4.5) mg/dL Magnesium (1.6-2.3) mg/dL Total Bilirubin (0.2-1.3) mg/dL AST (14-36) U/L ALT (9-52) U/L Alkaline Phosphatase (38-126) U/L Troponin I (0.00-0.120) ng/mL Total Protein (6.3-8.3) g/dL Albumin (3.5-5.0) g/dL Globulin (2.2-3.9) gm/dL Albumin/Globulin Ratio (1.0-2.1) Urine Color Yellow (YELLOW) Urine Clarity Hazy (Clear) Urine pH 5.0 (5.0-8.0) Ur Specific Barton 1.013 (1.003-1.030) Urine Protein 3+ H (NEGATIVE) mg/dL Urine Glucose (UA) 1+ (Normal) mg/dL Urine Ketones Negative (NEGATIVE) mg/dL Urine Blood 1+ H (NEGATIVE) Urine Nitrate Negative (NEGATIVE) Urine Bilirubin Negative (NEGATIVE) Urine Urobilinogen Normal (0.2-1.0) mg/dL Ur Leukocyte Esterase Neg (Negative) Libby/uL Urine WBC (Auto) 21 H (0-5) /hpf Urine RBC (Auto) 40 H (0-3) /hpf Ur Squamous Epith Cells < 1 (0-5) /hpf Urine Bacteria Many H (<OCC) Laboratory Results - last 24 hr 04/20/18 04/20/18 04/21/18 22:18 22:31 00:02 WBC RBC Hgb Hct MCV MCH MCHC RDW Plt Count MPV Neut % (Auto) Lymph % (Auto) Mineral % (Auto) Eos % (Auto) Baso % (Auto) Neut # (Auto) Lymph # (Auto) Mineral # (Auto) Eos # (Auto) Baso # (Auto) Neutrophils % (Manual) Band Neutrophils % Lymphocytes % (Manual) Monocytes % (Manual) Toxic Granulation Platelet Estimate Large Platelets Giant Platelets Poikilocytosis (manual Puncture Site pCO2 pO2 HCO3 ABG pH ABG Total CO2 ABG O2 Saturation ABG Base Excess ABG Hemoglobin ABG Carboxyhemoglobin POC ABG HHb (Measured) ABG Methemoglobin Aurelio Test A-a O2 Difference Respiratory Index Hgb O2 Saturation Vent Mode Mechanical Rate FiO2 Tidal Volume PEEP Sodium Potassium Chloride Carbon Dioxide Anion Gap BUN Creatinine Est GFR ( Amer) Est GFR (Non-Af Amer) POC Glucose (mg/dL) 24 L* Random Glucose Calcium Phosphorus Magnesium Total Bilirubin AST ALT Alkaline Phosphatase Troponin I 0.4590 H* Total Protein Albumin Globulin Albumin/Globulin Ratio Urine Color Yellow Urine Clarity Hazy Urine pH 5.0 Ur Specific Barton 1.013 Urine Protein 3+ H Urine Glucose (UA) 1+ Urine Ketones Negative Urine Blood 1+ H Urine Nitrate Negative Urine Bilirubin Negative Urine Urobilinogen Normal Ur Leukocyte Esterase Neg Urine WBC (Auto) 21 H Urine RBC (Auto) 40 H Ur Squamous Epith Cells < 1 Urine Bacteria Many H 04/21/18 04/21/18 04/21/18 00:04 01:21 05:17 WBC RBC Hgb Hct MCV MCH MCHC RDW Plt Count MPV Neut % (Auto) Lymph % (Auto) Mineral % (Auto) Eos % (Auto) Baso % (Auto) Neut # (Auto) Lymph # (Auto) Mineral # (Auto) Eos # (Auto) Baso # (Auto) Neutrophils % (Manual) Band Neutrophils % Lymphocytes % (Manual) Monocytes % (Manual) Toxic Granulation Platelet Estimate Large Platelets Giant Platelets Poikilocytosis (manual Puncture Site R rad pCO2 37 pO2 74 L HCO3 20.8 L ABG pH 7.34 L ABG Total CO2 21.1 L ABG O2 Saturation 96.6 ABG Base Excess -5.1 L ABG Hemoglobin 16.4 ABG Carboxyhemoglobin 2.2 H POC ABG HHb (Measured) 3.3 ABG Methemoglobin 0.8 Aurelio Test Pos A-a O2 Difference 593.0 Respiratory Index 8.0 Hgb O2 Saturation 93.7 L Vent Mode Prvc Mechanical Rate 24 FiO2 100.0 Tidal Volume 500 PEEP 5 Sodium Potassium Chloride Carbon Dioxide Anion Gap BUN Creatinine Est GFR ( Amer) Est GFR (Non-Af Amer) POC Glucose (mg/dL) 43 L 146 H Random Glucose Calcium Phosphorus Magnesium Total Bilirubin AST ALT Alkaline Phosphatase Troponin I Total Protein Albumin Globulin Albumin/Globulin Ratio Urine Color Urine Clarity Urine pH Ur Specific Barton Urine Protein Urine Glucose (UA) Urine Ketones Urine Blood Urine Nitrate Urine Bilirubin Urine Urobilinogen Ur Leukocyte Esterase Urine WBC (Auto) Urine RBC (Auto) Ur Squamous Epith Cells Urine Bacteria 04/21/18 04/21/18 04/21/18 06:26 06:26 06:38 WBC 27.3 H RBC 6.56 H Hgb 16.8 H Hct 53.3 H MCV 81.2 D MCH 25.6 L MCHC 31.6 L RDW 16.0 H Plt Count 192 MPV 10.0 Neut % (Auto) 92.3 H Lymph % (Auto) 3.0 L Mineral % (Auto) 3.9 Eos % (Auto) 0.2 Baso % (Auto) 0.6 Neut # (Auto) 25.2 H Lymph # (Auto) 0.8 L Mineral # (Auto) 1.1 H Eos # (Auto) 0.0 Baso # (Auto) 0.2 Neutrophils % (Manual) 46 L Band Neutrophils % 50 H* Lymphocytes % (Manual) 2 L Monocytes % (Manual) 2 Toxic Granulation Present Platelet Estimate Normal Large Platelets Present Giant Platelets Present Poikilocytosis (manual Slight Puncture Site pCO2 pO2 HCO3 ABG pH ABG Total CO2 ABG O2 Saturation ABG Base Excess ABG Hemoglobin ABG Carboxyhemoglobin POC ABG HHb (Measured) ABG Methemoglobin Aurelio Test A-a O2 Difference Respiratory Index Hgb O2 Saturation Vent Mode Mechanical Rate FiO2 Tidal Volume PEEP Sodium 136 Potassium 3.7 Chloride 101 Carbon Dioxide 22 Anion Gap 16 BUN 38 H Creatinine 1.7 H Est GFR ( Amer) 37 Est GFR (Non-Af Amer) 30 POC Glucose (mg/dL) 159 H Random Glucose 174 H Calcium 8.3 L Phosphorus 3.5 Magnesium 1.6 Total Bilirubin 1.7 H AST 94 H ALT 29 Alkaline Phosphatase 290 H Troponin I Total Protein 5.9 L Albumin 2.5 L D Globulin 3.4 Albumin/Globulin Ratio 0.7 L Urine Color Urine Clarity Urine pH Ur Specific Barton Urine Protein Urine Glucose (UA) Urine Ketones Urine Blood Urine Nitrate Urine Bilirubin Urine Urobilinogen Ur Leukocyte Esterase Urine WBC (Auto) Urine RBC (Auto) Ur Squamous Epith Cells Urine Bacteria 04/21/18 12:12 WBC RBC Hgb Hct MCV MCH MCHC RDW Plt Count MPV Neut % (Auto) Lymph % (Auto) Mineral % (Auto) Eos % (Auto) Baso % (Auto) Neut # (Auto) Lymph # (Auto) Mineral # (Auto) Eos # (Auto) Baso # (Auto) Neutrophils % (Manual) Band Neutrophils % Lymphocytes % (Manual) Monocytes % (Manual) Toxic Granulation Platelet Estimate Large Platelets Giant Platelets Poikilocytosis (manual Puncture Site pCO2 pO2 HCO3 ABG pH ABG Total CO2 ABG O2 Saturation ABG Base Excess ABG Hemoglobin ABG Carboxyhemoglobin POC ABG HHb (Measured) ABG Methemoglobin Aurelio Test A-a O2 Difference Respiratory Index Hgb O2 Saturation Vent Mode Mechanical Rate FiO2 Tidal Volume PEEP Sodium Potassium Chloride Carbon Dioxide Anion Gap BUN Creatinine Est GFR ( Amer) Est GFR (Non-Af Amer) POC Glucose (mg/dL) 128 H Random Glucose Calcium Phosphorus Magnesium Total Bilirubin AST ALT Alkaline Phosphatase Troponin I Total Protein Albumin Globulin Albumin/Globulin Ratio Urine Color Urine Clarity Urine pH Ur Specific Barton Urine Protein Urine Glucose (UA) Urine Ketones Urine Blood Urine Nitrate Urine Bilirubin Urine Urobilinogen Ur Leukocyte Esterase Urine WBC (Auto) Urine RBC (Auto) Ur Squamous Epith Cells Urine Bacteria Radiology Impressions: Radiology Impressions Head CT 04/20/18 14:17 IMPRESSION: Minimal chronic microangiopathy appropriate for the patient's stated age of 63 years. No additional pertinent findings in hemorrhage, mass effect or parenchymal edema. Follow-up CT available or MRI if clinically warranted. Chest X-Ray 04/20/18 15:57 IMPRESSION: Suboptimal study as above. Moderate pulmonary venous congestion. Small pleural effusions. Endotracheal tube terminates approximately 6 cm above the molly which is inadequately visualized due to overlying defibrillator pad. Nasogastric tube extends expected location of the stomach. Chest X-Ray 04/21/18 06:00 Impression: Moderate venous congestion. Confluent somewhat ill-defined airspace consolidative changes seen within the left mid lung zone and right infrahilar region. Bilateral hilar prominence. Atherosclerotic calcification and plaque in the aorta. Cardiomegaly. Fingerstick Blood Sugar Results: 128 Review of Systems - Review of Systems Systems not reviewed;Unavailable: Intubated Critical Care Progress Note - Ventilator Checklist Head of Bed 30 Degrees: Yes Daily Sedation Vacation: Yes Daily Assessment of Readiness to Wean: Yes Daily Spontaneous Breathing Trial: Yes PUD Prophalyxis: Yes DVT Prophylaxis: Yes Oral Care with Chlorhexidine Gluconate {CHG}: Yes - Vent Settings MODE:: PRVC TIDAL VOLUME:: 500 RESP RATE:: 24 FIO2:: 100 PEEP:: 5 - Extremities/Vascular Does the Patient have a Central Venous Catheter?: Yes Insertion Site: Femoral Vein Does the Patient need a Central Venous Catheter?: Yes Does the Patient have a Pan Catheter?: Yes Does the Patient need a Pan Catheter?: Yes Catheter Insertion Criteria: Need for accurate measurement of output in critically ill patient - Prophylaxis GI Prophylaxis GI: PPI Assessment/Plan - Assessment and Plan (Free Text) Assessment: Patient is a 63 yo female w/ PMH HTN, COPD, CHF admitted to ICU s/p intubation in field and cardiac arrest in ED. Neuro Off sedation not awake, alert, oriented 0 brainstem reflexes; decorticating poor neurological status Head CT shows no acute pathology (no bleed) CV Levophed Dopamine s/p multiple code blues; patient DNR Echo limited and diff study; LV systolic function and chamber size appear normal, consider other modality Pulm Intubated and vented Duoneb maintain spo2>92 GI no acute issues Protonix Endo no acute issues Renal bicarb dc'ed in AM Cr trending up; no fluids as patient is volume overloaded ID Vanc/Zosyn (started 04/21 both) white count elevated and bandemia of 50 bowens cx pending Dispostion: Patient DNR; Poor prognosis; Likely permanent neurological damage; Palliative care pending PGY-1 [facility] Medical Management d/w Dr. Mejia <Petey Mejia - Last Filed: 04/21/18 20:56> CCU Objective - Vital Signs / Intake & Output Vital Signs (Last 4 hours): Vital Signs Pulse Resp BP Pulse Ox 04/21/18 19:14 136 H 24 105/44 L 70 L 04/21/18 19:04 135 H 24 102/50 L 71 L 04/21/18 19:00 135 H 24 71 L 04/21/18 18:55 139 H 25 H 96/44 L 72 L 04/21/18 18:45 139 H 24 97/45 L 73 L 04/21/18 18:34 139 H 25 H 112/48 L 74 L 04/21/18 18:25 140 H 24 100/52 L 75 L 04/21/18 18:15 133 H 23 90/48 L 73 L 04/21/18 18:14 133 H 24 79/47 L 76 L 04/21/18 18:12 131 H 24 79/47 L 76 L 04/21/18 18:05 131 H 24 79/47 L 72 L 04/21/18 18:00 128 H 25 H 71 L 04/21/18 17:55 122 H 25 H 58/35 L 76 L 04/21/18 17:44 134 H 24 74/34 L 83 L 04/21/18 17:34 134 H 24 78/39 L 84 L 04/21/18 17:24 134 H 24 85/39 L 84 L 04/21/18 17:14 132 H 24 86/41 L 83 L 04/21/18 17:00 126 H 24 81 L 04/21/18 16:58 127 H 25 H 66/36 L 82 L Intake and Output (Last 8hrs): Intake & Output 04/21/18 04/21/18 04/21/18 06:59 14:59 22:59 Intake Total 1298.9 684.0 1385.9 Output Total 110 15 Balance 1188.9 669.0 1385.9 Weight 233 lb Intake: IV 520 132 546 Intake, IV Amount 778.9 552.0 839.9 Left Distal Port Femoral 210.2 150.4 206.4 Left Medial Port Femoral 320 200 400 Left Proximal Port 248.7 201.6 232.9 Femoral left groin TLC 0.6 Oral 0 0 Output: Urine 110 15 Urethral (Pan) 110 15 Stool 0 0 - Medications Active Medications: Active Medications Generic Name Dose Route Start Last Admin Trade Name Freq PRN Reason Stop Dose Admin Albuterol/Ipratropium 3 ml 04/20/18 16:00 04/21/18 20:00 Duoneb 3 Mg/0.5 Mg (3 Ml) Ud INH 3 ml RQ4 SHANNAN Administration Heparin Sodium (Porcine) 5,000 units 04/21/18 17:00 04/21/18 17:00 Heparin SC 5,000 units Q8 SHANNAN Administration Norepinephrine Bitartrate 4 mg 250 mls @ 15 mls/hr 04/20/18 14:16 01/10/19 18:45 / Sodium Chloride IV 20 mcg/min .[id number] PRN 75 mls/hr TITRATE PER MD ORDER Titration Protocol 4 MCG/MIN Dopamine HCl/Dextrose 400 mg in 250 mls @ 6.294 mls/hr 04/20/18 18:44 9 18:58 Dopamine 400mg/250ml D5w IV 20 mcg/kg/min .Q24H PRN 62.936 mls/hr TITRATE PER MD ORDER Titration Protocol 2 MCG/KG/MIN Piperacillin Sod/Tazobactam Sod 3.375 gm in 50 mls @ 100 mls/hr 04/21/18 12:15 04/21/18 18:16 Zosyn 3.375 Gm Iv Premix IVPB 100 mls/hr Q6H SHANNAN Administration Protocol Vancomycin HCl 1 gm/ Sodium 250 mls @ 166.7 mls/hr 04/21/18 12:15 04/21/18 16:16 Chloride IVPB 166.7 mls/hr Q24H SHANNAN Administration Protocol Vasopressin 40 units/ Sodium 40 mls @ 0.6 mls/hr 04/21/18 18:30 04/21/18 19:14 Chloride IV 0.01 units/min .Q24H SHANNAN 0.6 mls/hr Administration Protocol 0.01 UNITS/MIN Pantoprazole Sodium 40 mg 04/20/18 15:00 04/21/18 15:28 Protonix Inj IVP 40 mg Q12H SHANNAN Administration - Patient Studies Lab Studies: Microbiology Studies 04/20/18 22:18 MRSA Culture (Admit) - Final Nose MRSA NOT DETECTED Lab Studies 04/21/18 04/21/18 04/21/18 Range/Units 18:05 12:12 06:38 WBC (4.8-10.8) K/uL RBC (3.80-5.20) Mil/uL Hgb (11.0-16.0) g/dL Hct (34.0-47.0) % MCV (81.0-99.0) fL MCH (27.0-31.0) pg MCHC (33.0-37.0) g/dL RDW (11.5-14.5) % Plt Count (130-400) K/uL MPV (7.2-11.7) fL Neut % (Auto) (50.0-75.0) % Lymph % (Auto) (20.0-40.0) % Mineral % (Auto) (0.0-10.0) % Eos % (Auto) (0.0-4.0) % Baso % (Auto) (0.0-2.0) % Neut # (Auto) (1.8-7.0) K/uL Lymph # (Auto) (1.0-4.3) K/uL Mineral # (Auto) (0.0-0.8) K/uL Eos # (Auto) (0.0-0.7) K/uL Baso # (Auto) (0.0-0.2) K/uL Neutrophils % (Manual) (50-75) % Band Neutrophils % (0-2) % Lymphocytes % (Manual) (20-40) % Monocytes % (Manual) (0-10) % Toxic Granulation Platelet Estimate (NORMAL) Large Platelets Giant Platelets Poikilocytosis (manual Puncture Site pCO2 (35-45) mm/Hg pO2 (80-100) mm/Hg HCO3 (21-28) mmol/L ABG pH (7.35-7.45) ABG Total CO2 (22-28) mmol/L ABG O2 Saturation (95-98) % ABG Base Excess (-2.0-3.0) mmol/L ABG Hemoglobin (11.7-17.4) g/dL ABG Carboxyhemoglobin (0.5-1.5) % POC ABG HHb (Measured) (0.0-5.0) % ABG Methemoglobin (0.0-3.0) % Aurelio Test A-a O2 Difference mm/Hg Respiratory Index Hgb O2 Saturation (95.0-98.0) % Vent Mode Mechanical Rate FiO2 % Tidal Volume PEEP Sodium (132-148) mmol/L Potassium (3.6-5.2) mmol/L Chloride (98-107) mmol/L Carbon Dioxide (22-30) mmol/L Anion Gap (10-20) BUN (7-17) mg/dL Creatinine (0.7-1.2) mg/dL Est GFR ( Amer) Est GFR (Non-Af Amer) POC Glucose (mg/dL) 90 128 H 159 H (65-110) mg/dL Random Glucose (65-105) mg/dL Calcium (8.6-10.4) mg/dl Phosphorus (2.5-4.5) mg/dL Magnesium (1.6-2.3) mg/dL Total Bilirubin (0.2-1.3) mg/dL AST (14-36) U/L ALT (9-52) U/L Alkaline Phosphatase (38-126) U/L Troponin I (0.00-0.120) ng/mL Total Protein (6.3-8.3) g/dL Albumin (3.5-5.0) g/dL Globulin (2.2-3.9) gm/dL Albumin/Globulin Ratio (1.0-2.1) Urine Color (YELLOW) Urine Clarity (Clear) Urine pH (5.0-8.0) Ur Specific [place] (1.003-1.030) Urine Protein (NEGATIVE) mg/dL Urine Glucose (UA) (Normal) mg/dL Urine Ketones (NEGATIVE) mg/dL Urine Blood (NEGATIVE) Urine Nitrate (NEGATIVE) Urine Bilirubin (NEGATIVE) Urine Urobilinogen (0.2-1.0) mg/dL Ur Leukocyte Esterase (Negative) [place]/uL Urine WBC (Auto) (0-5) /hpf Urine RBC (Auto) (0-3) /hpf Ur Squamous Epith Cells (0-5) /hpf Urine Bacteria (<OCC) 04/21/18 04/21/18 04/21/18 Range/Units 06:26 06:26 05:17 WBC 27.3 H (4.8-10.8) K/uL RBC 6.56 H (3.80-5.20) Mil/uL Hgb 16.8 H (11.0-16.0) g/dL Hct 53.3 H (34.0-47.0) % MCV 81.2 D (81.0-99.0) fL MCH 25.6 L (27.0-31.0) pg MCHC 31.6 L (33.0-37.0) g/dL RDW 16.0 H (11.5-14.5) % Plt Count 192 (130-400) K/uL MPV 10.0 (7.2-11.7) fL Neut % (Auto) 92.3 H (50.0-75.0) % Lymph % (Auto) 3.0 L (20.0-40.0) % Mineral % (Auto) 3.9 (0.0-10.0) % Eos % (Auto) 0.2 (0.0-4.0) % Baso % (Auto) 0.6 (0.0-2.0) % Neut # (Auto) 25.2 H (1.8-7.0) K/uL Lymph # (Auto) 0.8 L (1.0-4.3) K/uL Min[place] # (Auto) 1.1 H (0.0-0.8) K/uL Eos # (Auto) 0.0 (0.0-0.7) K/uL Baso # (Auto) 0.2 (0.0-0.2) K/uL Neutrophils % (Manual) 46 L (50-75) % Band Neutrophils % 50 H* (0-2) % Lymphocytes % (Manual) 2 L (20-40) % Monocytes % (Manual) 2 (0-10) % Toxic Granulation Present Platelet Estimate Normal (NORMAL) Large Platelets Present Giant Platelets Present Poikilocytosis (manual Slight Puncture Site R rad pCO2 37 (35-45) mm/Hg pO2 74 L (80-100) mm/Hg HCO3 20.8 L (21-28) mmol/L ABG pH 7.34 L (7.35-7.45) ABG Total CO2 21.1 L (22-28) mmol/L ABG O2 Saturation 96.6 (95-98) % ABG Base Excess -5.1 L (-2.0-3.0) mmol/L ABG Hemoglobin 16.4 (11.7-17.4) g/dL ABG Carboxyhemoglobin 2.2 H (0.5-1.5) % POC ABG HHb (Measured) 3.3 (0.0-5.0) % ABG Methemoglobin 0.8 (0.0-3.0) % Aurelio Test Pos A-a O2 Difference 593.0 mm/Hg Respiratory Index 8.0 Hgb O2 Saturation 93.7 L (95.0-98.0) % Vent Mode Prvc Mechanical Rate 24 FiO2 100.0 % Tidal Volume 500 PEEP 5 Sodium 136 (132-148) mmol/L Potassium 3.7 (3.6-5.2) mmol/L Chloride 101 (98-107) mmol/L Carbon Dioxide 22 (22-30) mmol/L Anion Gap 16 (10-20) BUN 38 H (7-17) mg/dL Creatinine 1.7 H (0.7-1.2) mg/dL Est GFR ( Amer) 37 Est GFR (Non-Af Amer) 30 POC Glucose (mg/dL) (65-110) mg/dL Random Glucose 174 H (65-105) mg/dL Calcium 8.3 L (8.6-10.4) mg/dl Phosphorus 3.5 (2.5-4.5) mg/dL Magnesium 1.6 (1.6-2.3) mg/dL Total Bilirubin 1.7 H (0.2-1.3) mg/dL AST 94 H (14-36) U/L ALT 29 (9-52) U/L Alkaline Phosphatase 290 H (38-126) U/L Troponin I (0.00-0.120) ng/mL Total Protein 5.9 L (6.3-8.3) g/dL Albumin 2.5 L D (3.5-5.0) g/dL Globulin 3.4 (2.2-3.9) gm/dL Albumin/Globulin Ratio 0.7 L (1.0-2.1) Urine Color (YELLOW) Urine Clarity (Clear) Urine pH (5.0-8.0) Ur Specific [place] (1.003-1.030) Urine Protein (NEGATIVE) mg/dL Urine Glucose (UA) (Normal) mg/dL Urine Ketones (NEGATIVE) mg/dL Urine Blood (NEGATIVE) Urine Nitrate (NEGATIVE) Urine Bilirubin (NEGATIVE) Urine Urobilinogen (0.2-1.0) mg/dL Ur Leukocyte Esterase (Negative) [place]/uL Urine WBC (Auto) (0-5) /hpf Urine RBC (Auto) (0-3) /hpf Ur Squamous Epith Cells (0-5) /hpf Urine Bacteria (<OCC) 04/21/18 04/21/18 04/21/18 Range/Units 01:21 00:04 00:02 WBC (4.8-10.8) K/uL RBC (3.80-5.20) Mil/uL Hgb (11.0-16.0) g/dL Hct (34.0-47.0) % MCV (81.0-99.0) fL MCH (27.0-31.0) pg MCHC (33.0-37.0) g/dL RDW (11.5-14.5) % Plt Count (130-400) K/uL MPV (7.2-11.7) fL Neut % (Auto) (50.0-75.0) % Lymph % (Auto) (20.0-40.0) % Mineral % (Auto) (0.0-10.0) % Eos % (Auto) (0.0-4.0) % Baso % (Auto) (0.0-2.0) % Neut # (Auto) (1.8-7.0) K/uL Lymph # (Auto) (1.0-4.3) K/uL [place] # (Auto) (0.0-0.8) K/uL Eos # (Auto) (0.0-0.7) K/uL Baso # (Auto) (0.0-0.2) K/uL Neutrophils % (Manual) (50-75) % Band Neutrophils % (0-2) % Lymphocytes % (Manual) (20-40) % Monocytes % (Manual) (0-10) % Toxic Granulation Platelet Estimate (NORMAL) Large Platelets Giant Platelets Poikilocytosis (manual Puncture Site pCO2 (35-45) mm/Hg pO2 (80-100) mm/Hg HCO3 (21-28) mmol/L ABG pH (7.35-7.45) ABG Total CO2 (22-28) mmol/L ABG O2 Saturation (95-98) % ABG Base Excess (-2.0-3.0) mmol/L ABG Hemoglobin (11.7-17.4) g/dL ABG Carboxyhemoglobin (0.5-1.5) % POC ABG HHb (Measured) (0.0-5.0) % ABG Methemoglobin (0.0-3.0) % Aurelio Test A-a O2 Difference mm/Hg Respiratory Index Hgb O2 Saturation (95.0-98.0) % Vent Mode Mechanical Rate FiO2 % Tidal Volume PEEP Sodium (132-148) mmol/L Potassium (3.6-5.2) mmol/L Chloride (98-107) mmol/L Carbon Dioxide (22-30) mmol/L Anion Gap (10-20) BUN (7-17) mg/dL Creatinine (0.7-1.2) mg/dL Est GFR ( Amer) Est GFR (Non-Af Amer) POC Glucose (mg/dL) 146 H 43 L 24 L* (65-110) mg/dL Random Glucose (65-105) mg/dL Calcium (8.6-10.4) mg/dl Phosphorus (2.5-4.5) mg/dL Magnesium (1.6-2.3) mg/dL Total Bilirubin (0.2-1.3) mg/dL AST (14-36) U/L ALT (9-52) U/L Alkaline Phosphatase (38-126) U/L Troponin I (0.00-0.120) ng/mL Total Protein (6.3-8.3) g/dL Albumin (3.5-5.0) g/dL Globulin (2.2-3.9) gm/dL Albumin/Globulin Ratio (1.0-2.1) Urine Color (YELLOW) Urine Clarity (Clear) Urine pH (5.0-8.0) Ur Specific [place] (1.003-1.030) Urine Protein (NEGATIVE) mg/dL Urine Glucose (UA) (Normal) mg/dL Urine Ketones (NEGATIVE) mg/dL Urine Blood (NEGATIVE) Urine Nitrate (NEGATIVE) Urine Bilirubin (NEGATIVE) Urine Urobilinogen (0.2-1.0) mg/dL Ur Leukocyte Esterase (Negative) [place]/uL Urine WBC (Auto) (0-5) /hpf Urine RBC (Auto) (0-3) /hpf Ur Squamous Epith Cells (0-5) /hpf Urine Bacteria (<OCC) 04/20/18 04/20/18 Range/Units 22:31 22:18 WBC (4.8-10.8) K/uL RBC (3.80-5.20) Mil/uL Hgb (11.0-16.0) g/dL Hct (34.0-47.0) % MCV (81.0-99.0) fL MCH (27.0-31.0) pg MCHC (33.0-37.0) g/dL RDW (11.5-14.5) % Plt Count (130-400) K/uL MPV (7.2-11.7) fL Neut % (Auto) (50.0-75.0) % Lymph % (Auto) (20.0-40.0) % [place] % (Auto) (0.0-10.0) % Eos % (Auto) (0.0-4.0) % Baso % (Auto) (0.0-2.0) % Neut # (Auto) (1.8-7.0) K/uL Lymph # (Auto) (1.0-4.3) K/uL [place] # (Auto) (0.0-0.8) K/uL Eos # (Auto) (0.0-0.7) K/uL Baso # (Auto) (0.0-0.2) K/uL Neutrophils % (Manual) (50-75) % Band Neutrophils % (0-2) % Lymphocytes % (Manual) (20-40) % Monocytes % (Manual) (0-10) % Toxic Granulation Platelet Estimate (NORMAL) Large Platelets Giant Platelets Poikilocytosis (manual Puncture Site pCO2 (35-45) mm/Hg pO2 (80-100) mm/Hg HCO3 (21-28) mmol/L ABG pH (7.35-7.45) ABG Total CO2 (22-28) mmol/L ABG O2 Saturation (95-98) % ABG Base Excess (-2.0-3.0) mmol/L ABG Hemoglobin (11.7-17.4) g/dL ABG Carboxyhemoglobin (0.5-1.5) % POC ABG HHb (Measured) (0.0-5.0) % ABG Methemoglobin (0.0-3.0) % Aurelio Test A-a O2 Difference mm/Hg Respiratory Index Hgb O2 Saturation (95.0-98.0) % Vent Mode Mechanical Rate FiO2 % Tidal Volume PEEP Sodium (132-148) mmol/L Potassium (3.6-5.2) mmol/L Chloride (98-107) mmol/L Carbon Dioxide (22-30) mmol/L Anion Gap (10-20) BUN (7-17) mg/dL Creatinine (0.7-1.2) mg/dL Est GFR ( Amer) Est GFR (Non-Af Amer) POC Glucose (mg/dL) (65-110) mg/dL Random Glucose (65-105) mg/dL Calcium (8.6-10.4) mg/dl Phosphorus (2.5-4.5) mg/dL Magnesium (1.6-2.3) mg/dL Total Bilirubin (0.2-1.3) mg/dL AST (14-36) U/L ALT (9-52) U/L Alkaline Phosphatase (38-126) U/L Troponin I 0.4590 H* (0.00-0.120) ng/mL Total Protein (6.3-8.3) g/dL Albumin (3.5-5.0) g/dL Globulin (2.2-3.9) gm/dL Albumin/Globulin Ratio (1.0-2.1) Urine Color Yellow (YELLOW) Urine Clarity Hazy (Clear) Urine pH 5.0 (5.0-8.0) Ur Specific [place] 1.013 (1.003-1.030) Urine Protein 3+ H (NEGATIVE) mg/dL Urine Glucose (UA) 1+ (Normal) mg/dL Urine Ketones Negative (NEGATIVE) mg/dL Urine Blood 1+ H (NEGATIVE) Urine Nitrate Negative (NEGATIVE) Urine Bilirubin Negative (NEGATIVE) Urine Urobilinogen Normal (0.2-1.0) mg/dL Ur Leukocyte Esterase Neg (Negative) [place]/uL Urine WBC (Auto) 21 H (0-5) /hpf Urine RBC (Auto) 40 H (0-3) /hpf Ur Squamous Epith Cells < 1 (0-5) /hpf Urine Bacteria Many H (<OCC) Laboratory Results - last 24 hr 04/20/18 04/20/18 04/21/18 22:18 22:31 00:02 WBC RBC Hgb Hct MCV MCH MCHC RDW Plt Count MPV Neut % (Auto) Lymph % (Auto) [place] % (Auto) Eos % (Auto) Baso % (Auto) Neut # (Auto) Lymph # (Auto) [place] # (Auto) Eos # (Auto) Baso # (Auto) Neutrophils % (Manual) Band Neutrophils % Lymphocytes % (Manual) Monocytes % (Manual) Toxic Granulation Platelet Estimate Large Platelets Giant Platelets Poikilocytosis (manual Puncture Site pCO2 pO2 HCO3 ABG pH ABG Total CO2 ABG O2 Saturation ABG Base Excess ABG Hemoglobin ABG Carboxyhemoglobin POC ABG HHb (Measured) ABG Methemoglobin Uarelio Test A-a O2 Difference Respiratory Index Hgb O2 Saturation Vent Mode Mechanical Rate FiO2 Tidal Volume PEEP Sodium Potassium Chloride Carbon Dioxide Anion Gap BUN Creatinine Est GFR ( Amer) Est GFR (Non-Af Amer) POC Glucose (mg/dL) 24 L* Random Glucose Calcium Phosphorus Magnesium Total Bilirubin AST ALT Alkaline Phosphatase Troponin I 0.4590 H* Total Protein Albumin Globulin Albumin/Globulin Ratio Urine Color Yellow Urine Clarity Hazy Urine pH 5.0 Ur Specific [place] 1.013 Urine Protein 3+ H Urine Glucose (UA) 1+ Urine Ketones Negative Urine Blood 1+ H Urine Nitrate Negative Urine Bilirubin Negative Urine Urobilinogen Normal Ur Leukocyte Esterase Neg Urine WBC (Auto) 21 H Urine RBC (Auto) 40 H Ur Squamous Epith Cells < 1 Urine Bacteria Many H 04/21/18 04/21/18 04/21/18 00:04 01:21 05:17 WBC RBC Hgb Hct MCV MCH MCHC RDW Plt Count MPV Neut % (Auto) Lymph % (Auto) [place] % (Auto) Eos % (Auto) Baso % (Auto) Neut # (Auto) Lymph # (Auto) [place] # (Auto) Eos # (Auto) Baso # (Auto) Neutrophils % (Manual) Band Neutrophils % Lymphocytes % (Manual) Monocytes % (Manual) Toxic Granulation Platelet Estimate Large Platelets Giant Platelets Poikilocytosis (manual Puncture Site R rad pCO2 37 pO2 74 L HCO3 20.8 L ABG pH 7.34 L ABG Total CO2 21.1 L ABG O2 Saturation 96.6 ABG Base Excess -5.1 L ABG Hemoglobin 16.4 ABG Carboxyhemoglobin 2.2 H POC ABG HHb (Measured) 3.3 ABG Methemoglobin 0.8 Aurelio Test Pos A-a O2 Difference 593.0 Respiratory Index 8.0 Hgb O2 Saturation 93.7 L Vent Mode Prvc Mechanical Rate 24 FiO2 100.0 Tidal Volume 500 PEEP 5 Sodium Potassium Chloride Carbon Dioxide Anion Gap BUN Creatinine Est GFR ( Amer) Est GFR (Non-Af Amer) POC Glucose (mg/dL) 43 L 146 H Random Glucose Calcium Phosphorus Magnesium Total Bilirubin AST ALT Alkaline Phosphatase Troponin I Total Protein Albumin Globulin Albumin/Globulin Ratio Urine Color Urine Clarity Urine pH Ur Specific [place] Urine Protein Urine Glucose (UA) Urine Ketones Urine Blood Urine Nitrate Urine Bilirubin Urine Urobilinogen Ur Leukocyte Esterase Urine WBC (Auto) Urine RBC (Auto) Ur Squamous Epith Cells Urine Bacteria 04/21/18 04/21/18 04/21/18 06:26 06:26 06:38 WBC 27.3 H RBC 6.56 H Hgb 16.8 H Hct 53.3 H MCV 81.2 D MCH 25.6 L MCHC 31.6 L RDW 16.0 H Plt Count 192 MPV 10.0 Neut % (Auto) 92.3 H Lymph % (Auto) 3.0 L [place] % (Auto) 3.9 Eos % (Auto) 0.2 Baso % (Auto) 0.6 Neut # (Auto) 25.2 H Lymph # (Auto) 0.8 L [place] # (Auto) 1.1 H Eos # (Auto) 0.0 Baso # (Auto) 0.2 Neutrophils % (Manual) 46 L Band Neutrophils % 50 H* Lymphocytes % (Manual) 2 L Monocytes % (Manual) 2 Toxic Granulation Present Platelet Estimate Normal Large Platelets Present Giant Platelets Present Poikilocytosis (manual Slight Puncture Site pCO2 pO2 HCO3 ABG pH ABG Total CO2 ABG O2 Saturation ABG Base Excess ABG Hemoglobin ABG Carboxyhemoglobin POC ABG HHb (Measured) ABG Methemoglobin Aurelio Test A-a O2 Difference Respiratory Index Hgb O2 Saturation Vent Mode Mechanical Rate FiO2 Tidal Volume PEEP Sodium 136 Potassium 3.7 Chloride 101 Carbon Dioxide 22 Anion Gap 16 BUN 38 H Creatinine 1.7 H Est GFR ( Amer) 37 Est GFR (Non-Af Amer) 30 POC Glucose (mg/dL) 159 H Random Glucose 174 H Calcium 8.3 L Phosphorus 3.5 Magnesium 1.6 Total Bilirubin 1.7 H AST 94 H ALT 29 Alkaline Phosphatase 290 H Troponin I Total Protein 5.9 L Albumin 2.5 L D Globulin 3.4 Albumin/Globulin Ratio 0.7 L Urine Color Urine Clarity Urine pH Ur Specific [place] Urine Protein Urine Glucose (UA) Urine Ketones Urine Blood Urine Nitrate Urine Bilirubin Urine Urobilinogen Ur Leukocyte Esterase Urine WBC (Auto) Urine RBC (Auto) Ur Squamous Epith Cells Urine Bacteria 04/21/18 04/21/18 12:12 18:05 WBC RBC Hgb Hct MCV MCH MCHC RDW Plt Count MPV Neut % (Auto) Lymph % (Auto) [place] % (Auto) Eos % (Auto) Baso % (Auto) Neut # (Auto) Lymph # (Auto) [place] # (Auto) Eos # (Auto) Baso # (Auto) Neutrophils % (Manual) Band Neutrophils % Lymphocytes % (Manual) Monocytes % (Manual) Toxic Granulation Platelet Estimate Large Platelets Giant Platelets Poikilocytosis (manual Puncture Site pCO2 pO2 HCO3 ABG pH ABG Total CO2 ABG O2 Saturation ABG Base Excess ABG Hemoglobin ABG Carboxyhemoglobin POC ABG HHb (Measured) ABG Methemoglobin Aurelio Test A-a O2 Difference Respiratory Index Hgb O2 Saturation Vent Mode Mechanical Rate FiO2 Tidal Volume PEEP Sodium Potassium Chloride Carbon Dioxide Anion Gap BUN Creatinine Est GFR ( Amer) Est GFR (Non-Af Amer) POC Glucose (mg/dL) 128 H 90 Random Glucose Calcium Phosphorus Magnesium Total Bilirubin AST ALT Alkaline Phosphatase Troponin I Total Protein Albumin Globulin Albumin/Globulin Ratio Urine Color Urine Clarity Urine pH Ur Specific [place] Urine Protein Urine Glucose (UA) Urine Ketones Urine Blood Urine Nitrate Urine Bilirubin Urine Urobilinogen Ur Leukocyte Esterase Urine WBC (Auto) Urine RBC (Auto) Ur Squamous Epith Cells Urine Bacteria Radiology Impressions: Radiology Impressions Chest X-Ray 04/21/18 06:00 Impression: Moderate venous congestion. Confluent somewhat ill-defined airspace consolidative changes seen within the left mid lung zone and right infrahilar region. Bilateral hilar prominence. Atherosclerotic calcification and plaque in the aorta. Cardiomegaly. Attending/Attestation - Attestation I have personally seen and examined this patient.: Yes I have fully participated in the care of the patient.: Yes I have reviewed all pertinent clinical information: Yes Notes (Text): 04/21/18 20:56 Today: , April 21, 2018 The Patient was seen and examined at the bedside, Medical records reviewed, and management issues were discussed and formulated with the house staff. I have reviewed all the relevant clinical, laboratory, hemodynamic, radiographic data and medications Events reviewed Pain issues, skin care, head of the bed elevation, glycemic control were addressed. Agree with above resident's assessment and treatment plans of care as transcribed in Dr. Batista's note.
[2018-04-21] MEDS: Albuterol-Ipratrop 3 mg / 0.5 (3 ml) UD INH SCH ×2 (16:40→20:00)
[2018-04-21 18:14] VITALS: RESP 24
--- NOTE | 2018-04-21 19:53 | CP.PCM.HP ---
History of Present Illness - History of Present Illness History of Present Illness: pt came in to ed s/p cardiopulmonary arrest Present on Admission - Present on Admission Any Indicators Present on Admission: No Review of Systems - Review of Systems Systems not reviewed;Unavailable: Acuity of Condition - Constitutional Constitutional: As Per HPI - EENT Eyes: As Per HPI Ears: As Per HPI Nose/Mouth/Throat: As Per HPI - Breasts Breasts: As Per HPI - Cardiovascular Additional comments: cardiopulmonary arrest s/p resusition entubation hypotensive - Respiratory Respiratory: Dyspnea on Exertion - Gastrointestinal Gastrointestinal: As Per HPI - Genitourinary Genitourinary: As Per HPI - Reproductive: Female Reproductive:Female: As Per HPI - Menstruation Menstruation: As Per HPI - Musculoskeletal Musculoskeletal: As Per HPI - Integumentary Integumentary: As Per HPI - Neurological Neurological: As Per HPI - Psychiatric Psychiatric: As Per HPI - Endocrine Endocrine: As Per HPI - Hematologic/Lymphatic Hematologic: As Per HPI Past Patient History - Past Medical History & Family History Past Medical History?: Yes - Past Social History Smoking Status: Unknown If Ever Smoked - CARDIAC Hx Hypertension: Yes - PULMONARY Hx Asthma: Yes Hx Bronchitis: Yes Hx Chronic Obstructive Pulmonary Disease (COPD): Yes - MUSCULOSKELETAL/RHEUMATOLOGICAL Hx Falls: No - PSYCHIATRIC Hx Substance Use: No Meds Allergies/Adverse Reactions: Allergies Allergy/AdvReac Type Severity Reaction Status Date / Time No Known Allergies Allergy Verified 04/20/18 12:06 Physical Exam - Constitutional Appears: In Acute Distress Additional comments: no response - Head Exam Head Exam: ATRAUMATIC - Eye Exam Eye Exam: Conjunctival injection - ENT Exam ENT Exam: Mucous Membranes Moist - Neck Exam Neck exam: Positive for: Normal Inspection - Respiratory Exam Respiratory Exam: Decreased Breath Sounds - Cardiovascular Exam Cardiovascular Exam: Tachycardia - GI/Abdominal Exam GI & Abdominal Exam: Soft - Extremities Exam Extremities exam: Positive for: normal inspection - Skin Skin Exam: Normal Color Results - Vital Signs Recent Vital Signs: Last Vital Signs Temp 98.2 F 04/21/18 12:00 Pulse 136 H 04/21/18 19:14 Resp 24 04/21/18 19:14 BP 105/44 L 04/21/18 19:14 Pulse Ox 70 L 04/21/18 19:14 - Labs Result Diagrams: 04/21/18 06:26 04/21/18 06:26 Labs: Laboratory Results - last 24 hr 04/20/18 04/20/18 04/21/18 22:18 22:31 00:02 WBC RBC Hgb Hct MCV MCH MCHC RDW Plt Count MPV Neut % (Auto) Lymph % (Auto) [place] % (Auto) Eos % (Auto) Baso % (Auto) Neut # (Auto) Lymph # (Auto) [place] # (Auto) Eos # (Auto) Baso # (Auto) Neutrophils % (Manual) Band Neutrophils % Lymphocytes % (Manual) Monocytes % (Manual) Toxic Granulation Platelet Estimate Large Platelets Giant Platelets Poikilocytosis (manual Puncture Site pCO2 pO2 HCO3 ABG pH ABG Total CO2 ABG O2 Saturation ABG Base Excess ABG Hemoglobin ABG Carboxyhemoglobin POC ABG HHb (Measured) ABG Methemoglobin Aurelio Test A-a O2 Difference Respiratory Index Hgb O2 Saturation Vent Mode Mechanical Rate FiO2 Tidal Volume PEEP Sodium Potassium Chloride Carbon Dioxide Anion Gap BUN Creatinine Est GFR ( Amer) Est GFR (Non-Af Amer) POC Glucose (mg/dL) 24 L* Random Glucose Calcium Phosphorus Magnesium Total Bilirubin AST ALT Alkaline Phosphatase Troponin I 0.4590 H* Total Protein Albumin Globulin Albumin/Globulin Ratio Urine Color Yellow Urine Clarity Hazy Urine pH 5.0 Ur Specific [place] 1.013 Urine Protein 3+ H Urine Glucose (UA) 1+ Urine Ketones Negative Urine Blood 1+ H Urine Nitrate Negative Urine Bilirubin Negative Urine Urobilinogen Normal Ur Leukocyte Esterase Neg Urine WBC (Auto) 21 H Urine RBC (Auto) 40 H Ur Squamous Epith Cells < 1 Urine Bacteria Many H 04/21/18 04/21/18 04/21/18 00:04 01:21 05:17 WBC RBC Hgb Hct MCV MCH MCHC RDW Plt Count MPV Neut % (Auto) Lymph % (Auto) [place] % (Auto) Eos % (Auto) Baso % (Auto) Neut # (Auto) Lymph # (Auto) [place] # (Auto) Eos # (Auto) Baso # (Auto) Neutrophils % (Manual) Band Neutrophils % Lymphocytes % (Manual) Monocytes % (Manual) Toxic Granulation Platelet Estimate Large Platelets Giant Platelets Poikilocytosis (manual Puncture Site R rad pCO2 37 pO2 74 L HCO3 20.8 L ABG pH 7.34 L ABG Total CO2 21.1 L ABG O2 Saturation 96.6 ABG Base Excess -5.1 L ABG Hemoglobin 16.4 ABG Carboxyhemoglobin 2.2 H POC ABG HHb (Measured) 3.3 ABG Methemoglobin 0.8 Aurelio Test Pos A-a O2 Difference 593.0 Respiratory Index 8.0 Hgb O2 Saturation 93.7 L Vent Mode Prvc Mechanical Rate 24 FiO2 100.0 Tidal Volume 500 PEEP 5 Sodium Potassium Chloride Carbon Dioxide Anion Gap BUN Creatinine Est GFR ( Amer) Est GFR (Non-Af Amer) POC Glucose (mg/dL) 43 L 146 H Random Glucose Calcium Phosphorus Magnesium Total Bilirubin AST ALT Alkaline Phosphatase Troponin I Total Protein Albumin Globulin Albumin/Globulin Ratio Urine Color Urine Clarity Urine pH Ur Specific [place] Urine Protein Urine Glucose (UA) Urine Ketones Urine Blood Urine Nitrate Urine Bilirubin Urine Urobilinogen Ur Leukocyte Esterase Urine WBC (Auto) Urine RBC (Auto) Ur Squamous Epith Cells Urine Bacteria 04/21/18 04/21/18 04/21/18 06:26 06:26 06:38 WBC 27.3 H RBC 6.56 H Hgb 16.8 H Hct 53.3 H MCV 81.2 D MCH 25.6 L MCHC 31.6 L RDW 16.0 H Plt Count 192 MPV 10.0 Neut % (Auto) 92.3 H Lymph % (Auto) 3.0 L [place] % (Auto) 3.9 Eos % (Auto) 0.2 Baso % (Auto) 0.6 Neut # (Auto) 25.2 H Lymph # (Auto) 0.8 L [place] # (Auto) 1.1 H Eos # (Auto) 0.0 Baso # (Auto) 0.2 Neutrophils % (Manual) 46 L Band Neutrophils % 50 H* Lymphocytes % (Manual) 2 L Monocytes % (Manual) 2 Toxic Granulation Present Platelet Estimate Normal Large Platelets Present Giant Platelets Present Poikilocytosis (manual Slight Puncture Site pCO2 pO2 HCO3 ABG pH ABG Total CO2 ABG O2 Saturation ABG Base Excess ABG Hemoglobin ABG Carboxyhemoglobin POC ABG HHb (Measured) ABG Methemoglobin [place] Test A-a O2 Difference Respiratory Index Hgb O2 Saturation Vent Mode Mechanical Rate FiO2 Tidal Volume PEEP Sodium 136 Potassium 3.7 Chloride 101 Carbon Dioxide 22 Anion Gap 16 BUN 38 H Creatinine 1.7 H Est GFR ( Amer) 37 Est GFR (Non-Af Amer) 30 POC Glucose (mg/dL) 159 H Random Glucose 174 H Calcium 8.3 L Phosphorus 3.5 Magnesium 1.6 Total Bilirubin 1.7 H AST 94 H ALT 29 Alkaline Phosphatase 290 H Troponin I Total Protein 5.9 L Albumin 2.5 L D Globulin 3.4 Albumin/Globulin Ratio 0.7 L Urine Color Urine Clarity Urine pH Ur Specific [place] Urine Protein Urine Glucose (UA) Urine Ketones Urine Blood Urine Nitrate Urine Bilirubin Urine Urobilinogen Ur Leukocyte Esterase Urine WBC (Auto) Urine RBC (Auto) Ur Squamous Epith Cells Urine Bacteria 04/21/18 04/21/18 12:12 18:05 WBC RBC Hgb Hct MCV MCH MCHC RDW Plt Count MPV Neut % (Auto) Lymph % (Auto) [place] % (Auto) Eos % (Auto) Baso % (Auto) Neut # (Auto) Lymph # (Auto) [place] # (Auto) Eos # (Auto) Baso # (Auto) Neutrophils % (Manual) Band Neutrophils % Lymphocytes % (Manual) Monocytes % (Manual) Toxic Granulation Platelet Estimate Large Platelets Giant Platelets Poikilocytosis (manual Puncture Site pCO2 pO2 HCO3 ABG pH ABG Total CO2 ABG O2 Saturation ABG Base Excess ABG Hemoglobin ABG Carboxyhemoglobin POC ABG HHb (Measured) ABG Methemoglobin [place] Test A-a O2 Difference Respiratory Index Hgb O2 Saturation Vent Mode Mechanical Rate FiO2 [place] Volume PEEP Sodium Potassium Chloride Carbon Dioxide Anion Gap BUN Creatinine Est GFR ( Amer) Est GFR (Non-Af Amer) POC Glucose (mg/dL) 128 H 90 Random Glucose Calcium Phosphorus Magnesium Total Bilirubin AST ALT Alkaline Phosphatase Troponin I Total Protein Albumin Globulin Albumin/Globulin Ratio Urine Color Urine Clarity Urine pH Ur Specific [place] Urine Protein Urine Glucose (UA) Urine Ketones Urine Blood Urine Nitrate Urine Bilirubin Urine Urobilinogen Ur Leukocyte Esterase Urine WBC (Auto) Urine RBC (Auto) Ur Squamous Epith Cells Urine Bacteria Assessment & Plan - Assessment and Plan (Free Text) Assessment: s/p cardiopulmonary arrest hyper [place] on ventilater Plan: cont as per orders - Date & Time Date: 04/21/18 Time: 19:56
[2018-04-21 21:45] VITALS: BP 47/28; PULSE 59
--- NOTE | 2018-04-21 22:28 | CP.PCM.PRO ---
Pronouncement of Note - Clinical Findings Physical Exam: No Response Verbal/Painful Stimuli, Absent Peripheral Puls es{Carotid & Femoral}, Absent Heart & Breath Sounds, No Pupillary Light Reflex, No Corneal Reflex, Pupils Fixed & Dilated, Absence of Vital Signs - Pronouncement Time Time of Pronouncement of : 21:39 - Notifications Pronouncement Notifications: Family Notified, Atending Notified Assistant Production Manager Notified: Yes - Autopsy Autopsy Requested: Yes - [place] [id number]
[2018-04-22 01:01] VITALS: O2SAT 59
[2018-04-22 01:02] VITALS: TEMP 99.9
--- NOTE | 2018-04-23 17:36 | CARD ---
APPROVED REPORT Date of service: 04/20/2018 EKG Measurement Heart [id number] IN [id number] <Conclusion> Sinus rhythm with 1st degree AV block Nonspecific T wave abnormality Abnormal ECG
--- NOTE | 2018-04-28 06:31 | DS ---
HISTORY OF PRESENT ILLNESS: The patient came in to the emergency room with cardiopulmonary arrest. She was intubated and was sent to the ICU. The patient became unresponsive and her vital signs was 98 temperature, pulse was 86, her respirations 24, blood pressure 105/44, pulse ox was 70. Her labs showed white count 27.3, hemoglobin 16.8 , and her sugar was 174. Her BUN was 38, creatinine 1.7. Urinalysis shows infection. She was treated in ICU. She got palliative care consultation, neurology consultation, pulmonary consultation, and wound care. She was on Accu-Chek. The patient was pronounced the same day she came in. She became unresponsive and no vital signs and she was pronounced on 04/21/2018, 2224. FINAL DIAGNOSES: Cardiopulmonary arrest, unresponsiveness, sepsis, and diabetes. Chelsea Hinds MD
== END 2018-04-21 21:39 | DRG 544 ==
LOC: C.ER 11:56 → C.9E 12:55 → C.9I 13:08
PROVIDERS: ADMIT Internal Medicine; ATTEND Internal Medicine
PROC: 5A1945Z Respiratory Ventilation, 24-96 Consecutive Hours (ICD-10-PCS; principal; 2018-04-20)
DX: I46.9 Cardiac arrest, cause unspecified (principal); N17.9 Acute kidney failure, unspecified; J44.1 Chronic obstructive pulmonary disease with (acute) exacerbation; I11.0 Hypertensive heart disease with heart failure; E87.2 Acidosis; I50.9 Heart failure, unspecified; Z66 Do not resuscitate; E83.39 Other disorders of phosphorus metabolism; D72.825 Bandemia; I51.7 Cardiomegaly; I70.0 Atherosclerosis of aorta; R73.9 Hyperglycemia, unspecified